=== PATIENT | female | born 1955 | race Caucasian/White ===

== ENCOUNTER → 2019-07-06 10:02 | Outpatient (CLI) | payer OTHER, SELFPAY | PROVIDERS: Visit Provider Nurse Practitioner | DX: R30.0 Dysuria (principal) | CPT/HCPCS: 87077; 87086; 87186 ==

== ENCOUNTER → 2019-11-17 10:45 | Outpatient (CLI) | payer OTHER, SELFPAY ==
--- NOTE | 2019-11-17 | DI.MG.S_ITS ---
BILATERAL DIGITAL SCREENING MAMMOGRAM 3D/2D WITH CAD: 11/17/2019 CLINICAL: Routine screening. Family history of breast cancer. Comparison is made to exams dated: 08/23/2016 mammogram, 08/19/2017 mammogram, and 09/29/2018 [facility]. There are scattered fibroglandular elements in both breasts. Current study was also evaluated with a Computer Aided Detection (CAD) system. There is a biopsy clip in the left breast. No significant masses, calcifications, or other findings are seen in either breast. There has been no significant interval change. IMPRESSION: NEGATIVE There is no mammographic evidence of malignancy. A 1 year screening mammogram is recommended. This exam was interpreted at Station ID: [id number]. NOTE: For mammograms, a report in lay terms will be sent to the patient. Approximately 15% of breast malignancies will not be visualized mammographically. In the management of a palpable breast mass, a negative mammogram must not discourage biopsy of a clinically suspicious lesion. Electronically Signed By: Andra alejo/ann:11/17/2019 13:07:31 letter sent: Normal Exam ACR BI-RADS Category 1: Negative 3341F
== END ==
PROVIDERS: PCP Family Medicine; Referring Provider Family Medicine; Visit Provider Family Medicine
DX: Z12.31 Encounter for screening mammogram for malignant neoplasm of breast (principal); Z80.3 Family history of malignant neoplasm of breast
CPT/HCPCS: 77063; 77067

== ENCOUNTER → 2020-11-27 10:52 | Outpatient (CLI) | payer OTHER, SELFPAY ==
--- NOTE | 2020-11-27 | DI.MG.S_ITS ---
BILATERAL DIGITAL SCREENING MAMMOGRAM 3D/2D WITH CAD: 11/27/2020 CLINICAL: Routine screening. Family history of breast cancer. Comparison is made to exams dated: 11/17/2019 mammogram - [facility], 09/29/2018 mammogram, and 08/19/2017 mammogram - [facility]. There are scattered fibroglandular elements in both breasts. Current study was also evaluated with a Computer Aided Detection (CAD) system. There is a biopsy clip in the left breast. No significant masses, calcifications, or other findings are seen in either breast. There has been no significant interval change. IMPRESSION: NEGATIVE There is no mammographic evidence of malignancy. A 1 year screening mammogram is recommended. This exam was interpreted at Station ID: [id number]. NOTE: For mammograms, a report in lay terms will be sent to the patient. Approximately 15% of breast malignancies will not be visualized mammographically. In the management of a palpable breast mass, a negative mammogram must not discourage biopsy of a clinically suspicious lesion. Electronically Signed By: Caesar carranza/ann:11/27/2020 13:49:17 letter sent: Normal Exam ACR BI-RADS Category 1: Negative 3341F
== END ==
PROVIDERS: PCP Family Medicine; Referring Provider Orthopaedic Surgery; Visit Provider Family Medicine
DX: Z12.31 Encounter for screening mammogram for malignant neoplasm of breast (principal); Z80.3 Family history of malignant neoplasm of breast
CPT/HCPCS: 77063; 77067

== ENCOUNTER → 2021-12-06 14:48 | Outpatient (CLI) | payer MEDICARE, OTHER, SELFPAY ==
--- NOTE | 2021-12-06 14:54 | DI.MG.S_ITS ---
BILATERAL DIGITAL SCREENING MAMMOGRAM 3D/2D WITH CAD: 12/06/2021 CLINICAL: Routine screening. Family history of breast cancer. Comparison is made to exams dated: 11/27/2020 mammogram, 11/17/2019 mammogram - [facility], and 09/29/2018 mammogram - [facility]. There are scattered fibroglandular elements in both breasts. Current study was also evaluated with a Computer Aided Detection (CAD) system. There is a biopsy clip in the left breast. No significant masses, calcifications, or other findings are seen in either breast. There has been no significant interval change. IMPRESSION: NEGATIVE There is no mammographic evidence of malignancy. A 1 year screening mammogram is recommended. This exam was interpreted at Station ID: [id number]. NOTE: For mammograms, a report in lay terms will be sent to the patient. Approximately 15% of breast malignancies will not be visualized mammographically. In the management of a palpable breast mass, a negative mammogram must not discourage biopsy of a clinically suspicious lesion. Electronically Signed By: Caesar carranza/ann:12/06/2021 16:25:40 letter sent: Normal Exam ACR BI-RADS Category 1: Negative 3341F
== END ==
PROVIDERS: PCP Family Medicine; Referring Provider Family Medicine; Visit Provider Family Medicine
DX: Z12.31 Encounter for screening mammogram for malignant neoplasm of breast (principal); Z80.3 Family history of malignant neoplasm of breast
CPT/HCPCS: 77063; 77067

== ENCOUNTER → 2022-08-13 09:25 | Outpatient (CLI) | payer MEDICARE, OTHER, SELFPAY ==
--- NOTE | 2022-08-22 09:56 | DIAB.MNT ---
Initial Diabetes Medical Nutrition Therapy Assessment Name: Leah Houston Date: 08/13/22 Time: [id number] Dx: Type II Diabetes Provider: Bry Leah presents today for initial DM visit with new diagnosis. Reports recent hgA1c of 5.8%, down from 6.5%. States she would like to learn as much as possible to keep BG in a therapeutic place. Continues on metformin 500mg BID. Has been staying active, and she has lost a reported 19# over four months intentionally. Leah would like to know what a healthy weight is for her and more about heart health. Also has questions regarding plant proteins and CHO content. Curious about egg nutrition. She has been tracking food with greg (130g CHO, 1500kcals) and is feeling satisfied. Saw nephrology for CKD. reports kidney issues r/t HTN (improved) and Advil use with h/o low back pain. Diet Recall: 7a: oatmeal, soy milk, berries (47g CHO) 1130a: tortilla with turkey avocado, lettuce and cheese (20g CHO) 3p: nuts or cheese or one tangerine (0-10g CHO) 630p: 6oz chx, acorn squash and salad (20-30g CHO) Beverages: 32-40oz water, 1c tea, 5c coffee, soymik, 1-2 ETOH servings per week Anthropometrics: Ht: 64 Wt: 172# Physical Activity: 30-60 mins walking per day outside, treadmill, or bike Self-Monitoring Blood Glucose: None Diabetes Medications: 500mg Metformin BID Pertinent Labs: 03/21/22 per referral: HgA1c 6.5% H eGFR: 46 L creatinine 1.29 h 10/29/21 Cholesterol 202 H T H HDL: 56 LDL: 114 H Past Medical History: OA, Disc degeneration, insomnia, HTN, back pain, Hypercholesterolemia, h/o colon polyps, h/o nicotine dependence, CKD3, DM2 Nutrition Rx: Carbohydrates: Meal:30-45g Snack:15-30g 1500kcals 80-95g PRO 50-60g Fat 1.5-2L fluids Nutrition Diagnosis: - Predicted inadequate fluids intake r/t limited water consumption aeb diet recall - Inconsistent pro intake r/t nutrition knowledge deficit aeb pt report and diet recall Intervention: This participant was very receptive. Provided appropriate educational handouts. Discussed the following topics: Completed intake assessment. Discussed barriers to care. Pathophysiology of T2DM HgA1c, its correlation to blood glucose numbers, and rationale for goal Plate Method, impact of macronutrients on blood sugar, meal timing, carbohydrate counting, pairing macronutrients and spreading out carbohydrates for better blood glucose management Recommended servings for carbohydrates at meals and snacks Heart health nutrition Brainstormed appropriate meal plan based on food preferences Role of physical activity and following provider guidelines for safety Egg nutrition Fluids recs for Dm and CKD PRO recs for CKD3 Healthy weight goals Created SMART goals for patient self-care and success. Goals: Add pro to breakfast- new Keep track of water- new Add eggs back into diet in moderation- new Follow-up: AVERY ROBERT follow-up for DSME classes in September and 1:1 thereafter. Oneyda Saleem RDN, [facility] Certified Diabetes Care and Spa Director/Finance P: [phone] Thank you for this referral
== END ==
PROVIDERS: PCP Family Medicine; Referring Provider Family Medicine; Visit Provider Family Medicine
DX: E11.9 Type 2 diabetes mellitus without complications (principal); Z71.3 Dietary counseling and surveillance; Z79.84 Long term (current) use of oral hypoglycemic drugs
CPT/HCPCS: 97802

== ENCOUNTER → 2022-09-03 09:21 | Outpatient (CLI) | payer MEDICARE, OTHER, SELFPAY ==
--- NOTE | 2022-09-05 13:54 | DIAB.FU ---
Diabetes Education Class Series: Diabetes and Nutrition Name: Leah Houston Date: 09/03/21 Time: 930a-12p Dx: Type II Diabetes Leah presents for class 1 of 3 for diabetes education. States she has been working on walking 60 min per day despite weather challenges. Also working on changes to her diet. Class topics covered: ? Debunk nutrition myths and discuss how to sustain healthy eating long-term through moderation and variety ? Define macronutrients and determine their impact on blood sugars ? Discuss macronutrient pairing, Plate Method, and carb counting ? Review general recommendations for carbohydrates ? Practice label reading ? Discuss the role of fiber in diabetes and provide examples of sources ? Review heart health nutrition: fats, fiber, and sodium ? Determine recommendations for grocery shopping and eating out ? Discuss alcohol recommendations ? Review the role of substitute sugars in diabetes management ? Set SMART goals Goal Set: Back exercises q other day fro 20-30 mins Follow-up: Diabetes Physiology and Medication Class in one week Oneyda Saleem RDN, [facility] Certified Diabetes Care and Private Equity Associate P: [phone] Thank you for this referral
== END ==
PROVIDERS: PCP Family Medicine; Referring Provider Family Medicine; Visit Provider Family Medicine
DX: E11.9 Type 2 diabetes mellitus without complications (principal); Z71.3 Dietary counseling and surveillance
CPT/HCPCS: G0109

== ENCOUNTER → 2022-09-10 09:24 | Outpatient (CLI) | payer MEDICARE, OTHER, SELFPAY ==
--- NOTE | 2022-09-12 11:19 | DIAB.FU ---
Diabetes Education Class Series: Diabetes Physiology and Medications Name: Leah Houston Date: 09/10/22 Time: [id number] Leah presents for class 2 of 3 today. Reports continued walking and incorporated back exercises, though is finding them to be more difficult than when she was doing these exercises previously. Plans to continue exercises but for 10-15 min. Class topics covered: ? Diabetes pathophysiology ? Discuss different types of diabetes ? Review criteria for diagnosing diabetes ? Review HgA1c measurement and associated blood sugars ? Review blood sugar monitoring safety, technique, and goals ? Discuss ways to reduce complications associated with diabetes, includes microvascular and macrovascular complications ? Review diabetes medications types, action, and side effects ? Health care visits recommended for people with T2DM ? Immunization recommended for people with T2DM ? SMART goals review Goal Set: back exercises q other day 10-15 mins Follow-up: Diabetes Lifestyle and Ongoing Support Class next week Oneyda Saleem RDN, [facility] Registered Dietitian, Certified Diabetes Care and Die Attaching Machine Tender [phone] [email or web address]
== END ==
PROVIDERS: PCP Family Medicine; Visit Provider Family Medicine
DX: E11.9 Type 2 diabetes mellitus without complications (principal); Z71.3 Dietary counseling and surveillance
CPT/HCPCS: G0109

== ENCOUNTER → 2022-09-17 09:25 | Outpatient (CLI) | payer MEDICARE, OTHER, SELFPAY ==
--- NOTE | 2022-09-26 15:54 | DIAB.FU ---
Diabetes Education Class Series: Diabetes Lifestyle Change and Ongoing Support Name: Leah Houston Date: 09/17/22 Time: [id number] Leah presents for class 3/3 DSME. participated well. States diet and exercise continue to be going well. Finding her back exercises to be more of a challenge than they were in the past, but working on them regardless. Plans to discuss with spouse how he can cont to support her lifestyle changes. Class topics covered: ? Discuss the difference between physical activity and exercise ? Determine physical activity benefits and impact on diabetes ? Review physical activity recommendations and safety ? Discuss emergency preparedness ? Discuss diabetes and emotions (diabetes burnout/distress) ? Review and practice stress management techniques ? Review support groups and community resources ? Discuss the role of family support in diabetes care ? What is going well? Challenges of diabetes? ? Set SMART goals Follow-up: 1:1 visit follow-up 10/01/22 Oneyda Saleem RDN, [facility] Registered Dietitian, Certified Diabetes Care and Senior Analysis Specialist [phone] [email or web address]
== END ==
PROVIDERS: PCP Family Medicine; Referring Provider Family Medicine; Visit Provider Family Medicine
DX: E11.9 Type 2 diabetes mellitus without complications (principal); Z71.3 Dietary counseling and surveillance
CPT/HCPCS: G0109

== ENCOUNTER → 2022-10-01 12:41 | Outpatient (CLI) | payer MEDICARE, OTHER, SELFPAY ==
--- NOTE | 2022-10-01 14:45 | DIAB.MNTFU ---
Follow-up Diabetes Medical Nutrition Therapy Assessment Name: Leah Houston Date: 10/01/22 Time: 105-145p Dx: Type II Diabetes Leah presents for diabetes follow-up after completion of DSME classes. Reports overall things are going well. States she has been conscious of carb intake, continues omitting ETOH, and tracking food intake in her greg. Would like to have more recipe resources geared toward diabetes. Reports has been more supportive in his actions in terms of diet/diabetes management. Fluid intake seems to have improved. Has added protein to breakfast as discussed. Aims for more plat forward diet, including plant proteins. Has added eggs back in moderation. States her biggest concern right now is stress management. Family member with cancer has poor prognosis. Being outside, talking with friends, and potentially getting a new dog may help with stress per report. Plans to see file drawer finisher and PCP in October for f/u. Anthropometrics: Ht: 64 Wt: 165# reported (down from 173# our first visit; endorses about 1# weight loss per week with lifestyle changes). Physical Activity: Walking daily for 60 mins. Incorporating gardening or back exercises most days. Self-Monitoring Blood Glucose: None. Diabetes Medications: 500mg Metformin BID Pertinent Labs: 03/21/22 per referral: HgA1c 6.5% H eGFR: 46 L creatinine 1.29 h 10/29/21 Cholesterol 202 H T H HDL: 56 LDL: 114 H Past Medical History: OA, Disc degeneration, insomnia, HTN, back pain, Hypercholesterolemia, h/o colon polyps, h/o nicotine dependence, CKD3, DM2 Nutrition Rx: Carbohydrates: Meal:30-45g Snack:15-30g 1500kcals 80-95g PRO 50-60g Fat 1.5-2L fluids Nutrition Diagnosis: - Predicted inadequate fluids intake r/t limited water consumption aeb diet recall- improved - Inconsistent pro intake r/t nutrition knowledge deficit aeb pt report and diet recall- improved - Food and nutrition related knowledge deficit r/t needing more resources for cookbooks aeb pt report - new Intervention: This participant was very receptive. Provided appropriate educational handouts. Discussed the following topics: Cookbooks, websites, and diabetes magazine resources Stress management and impact on BG Healthy weight loss plan Physical activity plan and progress Created SMART goals for patient self-care and success. Goals: Add pro to breakfast- met Keep track of water- met Add eggs back into diet in moderation- met Check out diabetes recipe resources- new Follow-up: AVERY ROBERT follow-up in 6 months for check-in. Leah seems to be managing her diabetes well with lifestyle changes. States she sometimes falls off her diet goals and would like to check-in over the summer. Encouraged her to call or message with questions or sooner f/u needs prn. Oneyda Saleem RDN, [facility] Certified Diabetes Care and Director Of Neurology P: [phone] Thank you for this referral
== END ==
PROVIDERS: PCP Family Medicine; Referring Provider Family Medicine; Visit Provider Family Medicine
DX: E11.9 Type 2 diabetes mellitus without complications (principal); Z79.84 Long term (current) use of oral hypoglycemic drugs; Z71.3 Dietary counseling and surveillance
CPT/HCPCS: 97803

== ENCOUNTER → 2022-12-09 14:15 | Outpatient (CLI) | payer MEDICARE, OTHER, SELFPAY ==
--- NOTE | 2022-12-09 | DI.MG.S_ITS ---
BILATERAL DIGITAL SCREENING MAMMOGRAM 3D/2D WITH CAD: 12/09/2022 CLINICAL: Routine screening. Family history of breast cancer. Comparison is made to exams dated: 12/06/2021 mammogram, 11/27/2020 mammogram, and 11/17/2019 mammogram - [facility]. There are scattered areas of fibroglandular density in both breasts (category b / 25%-50% glandular tissue). Current study was also evaluated with a Computer Aided Detection (CAD) system. There is a possible developing irregular equal density asymmetry with an indistinct margin in the right breast at 11 o'clock middle depth. This is increased in size. No other significant masses, calcifications, or other findings are seen in either breast. IMPRESSION: INCOMPLETE: NEEDS ADDITIONAL IMAGING EVALUATION The possible developing irregular equal density asymmetry in the right breast is indeterminate. Additional views with possible ultrasound are recommended. Based on the Tyrer Cuzick model (a risk assessment model) the patient's lifetime risk is 8.8% and her 10 year risk is 4.5%. According to the ACR, ACS, and NCCN guidelines, an annual breast MRI exam along with mammogram is recommended if the patient's lifetime risk is 20% or greater. This exam was interpreted at Station ID: [id number]. NOTE: For mammograms, a report in lay terms will be sent to the patient. Approximately 15% of breast malignancies will not be visualized mammographically. In the management of a palpable breast mass, a negative mammogram must not discourage biopsy of a clinically suspicious lesion. Electronically Signed By: Andra alejo/ann:12/09/2022 15:30:30 letter sent: Additional Imaging Needed ACR BI-RADS Category 0: Incomplete 3340F
== END ==
PROVIDERS: PCP Family Medicine; Referring Provider Family Medicine; Visit Provider Family Medicine
DX: Z12.31 Encounter for screening mammogram for malignant neoplasm of breast (principal); Z80.3 Family history of malignant neoplasm of breast
CPT/HCPCS: 77063; 77067

== ENCOUNTER → 2022-12-25 10:14 | Outpatient (CLI) | payer MEDICARE, OTHER, SELFPAY ==
--- NOTE | 2022-12-25 | DI.MG.S_ITS ---
UNILATERAL RIGHT DIGITAL DIAGNOSTIC MAMMOGRAM 3D/2D WITH ADDITIONAL VIEWS: 12/25/2022 CLINICAL: Additional evaluation requested from prior study. Comparison is made to exams dated: 12/09/2022 mammogram, 12/06/2021 mammogram, and 11/27/2020 mammogram - [facility]. There are scattered areas of fibroglandular density in the right breast (category b / 25%-50% glandular tissue). The possible developing irregular equal density asymmetry with an indistinct margin in the right breast at 11 o'clock middle depth is not reproduced and presumably represented superimposed breast tissue. This is not confirmed with additional views. No other significant masses or calcifications are seen in the breast. IMPRESSION: INCOMPLETE: NEEDS ADDITIONAL IMAGING EVALUATION No persistent abnormality in the right breast with additional views. An ultrasound is recommended to confirm resolution of the asymmetry in the right breast middle depth. This was performed immediately following this exam. Based on the Tyrer Cuzick model (a risk assessment model) the patient's lifetime risk is 8.8% and her 10 year risk is 4.5%. According to the ACR, ACS, and NCCN guidelines, an annual breast MRI exam along with mammogram is recommended if the patient's lifetime risk is 20% or greater. This exam was interpreted at Station ID: [id number]. NOTE: For mammograms, a report in lay terms will be sent to the patient. Approximately 15% of breast malignancies will not be visualized mammographically. In the management of a palpable breast mass, a negative mammogram must not discourage biopsy of a clinically suspicious lesion. Electronically Signed By: Andra alejo/:12/25/2022 12:04:02 ACR BI-RADS Category 0: Incomplete 3340F
--- NOTE | 2022-12-25 | DI.US.S_ITS ---
LIMITED ULTRASOUND OF RIGHT BREAST: 12/25/2022 CLINICAL: Patient returns today to evaluate a focal asymmetry in the right breast. Comparison is made to exams dated: 12/25/2022 mammogram, 12/06/2021 mammogram, 12/09/2022 mammogram, 11/27/2020 mammogram, 11/17/2019 mammogram - [facility], and 09/29/2018 mammogram - [facility]. Ultrasound of the right breast upper outer quadrant was performed. Bosch scale images of the real-time examination were reviewed. No significant abnormalities were seen sonographically in the right breast. Specifically, no finding to correspond to the patient's resolved screening mammographic abnormality. IMPRESSION: NEGATIVE There is no sonographic correlate to the patient's resolved screening mammogram abnormality and no evidence of malignancy. Return to annual mammogram screening schedule is recommended. Findings and recommendations were conveyed to the patient at time of exam. This exam was interpreted at Station ID: [id number]. Electronically Signed By: Andra alejo/:12/25/2022 12:05:21 letter sent: Normal Exam Ultrasound BI-RADS: 1 Negative
== END ==
PROVIDERS: PCP Family Medicine; Referring Provider Family Medicine; Visit Provider Family Medicine
DX: R92.2 Inconclusive mammogram (principal)
CPT/HCPCS: 76642; 77065; G0279

== ENCOUNTER → 2023-12-29 11:49 | Outpatient (CLI) | payer MEDICARE, OTHER, SELFPAY ==
--- NOTE | 2023-12-29 | DI.MG.S_ITS ---
BILATERAL DIGITAL SCREENING MAMMOGRAM 3D/2D WITH CAD: 12/29/2023 CLINICAL: Routine screening. Family history of breast cancer. Comparison is made to exams dated: 12/09/2022 mammogram, 12/06/2021 mammogram, and 11/27/2020 mammogram - [facility]. There are scattered areas of fibroglandular density in both breasts (category b / 25%-50% glandular tissue). Current study was also evaluated with a Computer Aided Detection (CAD) system. No significant masses, calcifications, or other findings are seen in either breast. There has been no significant interval change. IMPRESSION: NEGATIVE There is no mammographic evidence of malignancy. A 1 year screening mammogram is recommended. Based on the Tyrer Cuzick model (a risk assessment model) the patient's lifetime risk is 8.4% and her 10 year risk is 4.4%. According to the ACR, ACS, and NCCN guidelines, an annual breast MRI exam along with mammogram is recommended if the patient's lifetime risk is 20% or greater. This exam was interpreted at Station ID: [id number]. NOTE: For mammograms, a report in lay terms will be sent to the patient. Approximately 15% of breast malignancies will not be visualized mammographically. In the management of a palpable breast mass, a negative mammogram must not discourage biopsy of a clinically suspicious lesion. Electronically Signed By: Caesar carranza/ann:12/29/2023 12:50:33 letter sent: Normal Exam ACR BI-RADS Category 1: Negative 3341F
== END ==
PROVIDERS: PCP Family Medicine; Referring Provider Family Medicine; Visit Provider Family Medicine
DX: Z12.31 Encounter for screening mammogram for malignant neoplasm of breast (principal); Z80.3 Family history of malignant neoplasm of breast; R92.323 Mammographic fibroglandular density, bilateral breasts
CPT/HCPCS: 77063; 77067

== ENCOUNTER → 2024-04-02 06:57 | Outpatient (CLI) | payer MEDICARE, OTHER, SELFPAY ==
[2024-04-02 08:03] LABS: Add Manual Diff / Slide Review NO; Basophils Absolute Auto 100 /uL (0-100); Basophils Percent Auto 0.9 % (0-2); Eosinophils Absolute Auto 200 /uL (0-450); Eosinophils Percent Auto 3.1 % (2-4); Hematocrit 36.4 % (36-46); Hemoglobin 12.4 g/dL (12.0-16.0); Lymphocytes Absolute Auto 1500 /uL (1100-4500); Lymphocytes Percent Auto 22.6 % (25-40); Mean Corpuscular HGB Conc 33.9 % (30-36); Mean Corpuscular Hemoglobin 32.5 PG (26-34); Mean Corpuscular Volume 95.8 fL (80-100); Monocytes Absolute Auto 500 /uL (0-900); Monocytes Percent Auto 6.9 % (3-14); Neutrophils Absolute Auto 4400 /uL (1500-7000); Neutrophils Percent Auto 66.5 % (50-75); Platelet Count 253 X10^3/uL (150-400); Red Cell Distribution Width 12.7 % (11.6-14.8); White Blood Cell Count 6.7 X10^3/uL (4.5-11.0)
[2024-04-02 08:26] LABS: Alanine Aminotransferase 27 IU/L (<35); Albumin 4.3 g/dL (3.5-5.0); Albumin Globulin Ratio 1.5 (1.0-2.8); Alkaline Phosphatase 68 U/L (38-126); Aspartate Aminotransferase 34 IU/L (14-36); Bilirubin Total 0.5 mg/dL (0.2-1.3); Blood Urea Nitrogen 32 mg/dL (7-17); Carbon Dioxide 28 mmol/L (22-32); Chloride 102 mmol/L (98-107); Cholesterol 198 mg/dL (140-199); Estimated Glomerular Filt Rate 46 mL/min (>60); Globulin 2.8 g/dL (1.7-4.1); Glucose 98 mg/dL (80-110); HDL Cholesterol 61 mg/dL (40-60); HEMOLYSIS < 15 (0-50); LDL Cholesterol Calculated 97 mg/dL (<100); Potassium 4.5 mmol/L (3.4-5.1); Sodium 135 mmol/L (137-145); Total Protein 7.1 g/dL (6.3-8.2); Triglycerides 200 mg/dL (35-150)
== END ==
PROVIDERS: PCP Family Medicine; Referring Provider Family Medicine; Visit Provider Family Medicine
DX: Z00.00 Encounter for general adult medical examination without abnormal findings (principal); E11.9 Type 2 diabetes mellitus without complications; I10 Essential (primary) hypertension; G89.29 Other chronic pain; R51.9 Headache, unspecified
CPT/HCPCS: 36415; 80053; 80061; 83036; 85025

== ENCOUNTER → 2024-05-12 11:35 | Outpatient (CLI) | payer MEDICARE, OTHER, SELFPAY ==
--- NOTE | 2024-05-12 11:36 | DI.RAD.S_ITS ---
PROCEDURE: XR DEXA AXIAL SKELETON INDICATIONS: asymptomatic age related postmenopausal state COMPARISON: None. FINDINGS: Left Hip: Bone mineral density 0.745 g/cm2, T score -1.6. Left Femoral Neck: Bone mineral density 0.576 g/cm2, T score -2.5. Right Hip: Bone mineral density 0.73 g/cm2, T score -1.7. Right Femoral Neck: Bone mineral density 0.622 g/cm2, T score -2.0. Left Forearm: Bone mineral density 0.590 g/cm2, T score -1.7. Fracture Risk Calculation (when applicable): 10-year fracture risk of a major osteoporotic fracture 11% and of a hip fracture 1.9% without fracture and 18% and 3.0% with prior fracture. (T score greater or equal to -1.0 to: NORMAL) (T score from -1.1 to -2.4: OSTEOPENIA) (T score less than or equal to -2.5: OSTEOPOROSIS) IMPRESSION: Osteoporosis is present in the left femoral neck with [id number] osteopenia within the left hip as well as right hip/femoral neck and forearm. Follow-up guidelines as follows: Osteoporosis: Consider a repeat DEXA and Vertebral Fracture Assessment (VFA) exam in 2 years or sooner if medically necessary, to reassess this patient's status. Osteopenia: Consider a repeat DEXA in 2-3 years to reassess this patient's status, or if there is a new clinical indication. Normal: Consider a repeat DEXA in 5 years or sooner, or if there is a new clinical indication. All treatment decisions require clinical judgment and consideration of individual patient factors, including patient preferences, comorbidities, previous drug use, risk factors not captured in the FRAX model (e.g., frailty, falls, vitamin D deficiency, increased bone turnover, interval significant decline in bone density ) and possible under- or over-estimation of fracture risk by FRAX. In addition, the NOF Guide recommends that FDA-approved medical therapies be considered in postmenopausal women and men age >= 50 years with a: * Hip or vertebral (clinical or morphometric) fracture * T-score of <=-2.5 at the spine or hip * Ten-year fracture probability by FRAX of >= 3% for hip fracture or >=20% for major osteoporotic fracture. People with diagnosed cases of osteoporosis or at high risk for fracture should have regular bone mineral density tests. For patients eligible for Medicare, routine testing is allowed once every 2 years. The testing frequency can be increased to one year for patients who have rapidly progressing disease, those who are receiving or discontinuing medical therapy to restore bone mass, or have additional risk factors. Dictated by: Rajani Gutierrez M.D. on 05/12/2024 at 14:04 Approved by: Rajani Gutierrez M.D. on 05/12/2024 at 14:05
== END ==
PROVIDERS: PCP Family Medicine; Referring Provider Family Medicine; Visit Provider Family Medicine
DX: M81.0 Age-related osteoporosis without current pathological fracture (principal); Z78.0 Asymptomatic menopausal state
CPT/HCPCS: 77080; 77081

== ENCOUNTER → 2024-06-10 07:11 | Outpatient (CLI) | payer MEDICARE, OTHER, SELFPAY ==
[2024-06-10 08:33] LABS: Add Manual Diff / Slide Review NO; Basophils Absolute Auto 100 /uL (0-100); Basophils Percent Auto 0.8 % (0-2); Eosinophils Absolute Auto 200 /uL (0-450); Eosinophils Percent Auto 3.7 % (2-4); Hematocrit 35.2 % (36-46); Hemoglobin 11.9 g/dL (12.0-16.0); Lymphocytes Absolute Auto 1400 /uL (1100-4500); Lymphocytes Percent Auto 23.9 % (25-40); Mean Corpuscular HGB Conc 33.8 % (30-36); Mean Corpuscular Volume 94.6 fL (80-100); Monocytes Absolute Auto 500 /uL (0-900); Monocytes Percent Auto 8.2 % (3-14); Neutrophils Absolute Auto 3800 /uL (1500-7000); Neutrophils Percent Auto 63.4 % (50-75); Platelet Count 244 X10^3/uL (150-400); Red Blood Cell Count 3.72 X10^6/uL (4.0-5.2); Red Cell Distribution Width 12.5 % (11.6-14.8)
[2024-06-10 08:46] LABS: Hemoglobin A1C% w Est Avg Glu 5.9 % (4.0-6.0)
[2024-06-10 08:50] LABS: Alanine Aminotransferase 20 IU/L (<35); Albumin 3.9 g/dL (3.5-5.0); Albumin Globulin Ratio 1.4 (1.0-2.8); Alkaline Phosphatase 63 U/L (38-126); Aspartate Aminotransferase 29 IU/L (14-36); BUN Creatinine Ratio 26.6 (6-22); Bilirubin Total 0.4 mg/dL (0.2-1.3); Blood Urea Nitrogen 33 mg/dL (7-17); Calcium 10.1 mg/dL (8.4-10.2); Carbon Dioxide 29 mmol/L (22-32); Chloride 101 mmol/L (98-107); Estimated Glomerular Filt Rate 47 mL/min (>60); Globulin 2.7 g/dL (1.7-4.1); Glucose 99 mg/dL (80-110); HEMOLYSIS < 15 (0-50); Phosphorous 3.5 mg/dL (2.8-4.1); Potassium 4.3 mmol/L (3.4-5.1); Sodium 134 mmol/L (137-145); Total Protein 6.6 g/dL (6.3-8.2)
[2024-06-10 09:07] LABS: Vitamin D 25 Hydroxy (D3) 54.9 ng/mL (30.0-100.0)
== END ==
PROVIDERS: PCP Family Medicine; Referring Provider Family Medicine; Visit Provider Family Medicine
DX: N18.30 Chronic kidney disease, stage 3 unspecified (principal); E11.9 Type 2 diabetes mellitus without complications; I10 Essential (primary) hypertension; M81.0 Age-related osteoporosis without current pathological fracture
CPT/HCPCS: 36415; 80053; 82306; 83036; 84100; 85025

== ENCOUNTER → 2024-08-20 07:00 | Outpatient (CLI) | payer MEDICARE, OTHER, SELFPAY ==
[2024-08-20 08:09] LABS: Add Manual Diff / Slide Review NO; Basophils Absolute Auto 0 /uL (0-100); Basophils Percent Auto 0.6 % (0-2); Eosinophils Absolute Auto 200 /uL (0-450); Eosinophils Percent Auto 2.5 % (2-4); Hematocrit 35.9 % (36-46); Lymphocytes Absolute Auto 1500 /uL (1100-4500); Lymphocytes Percent Auto 22.9 % (25-40); Mean Corpuscular HGB Conc 33.5 % (30-36); Mean Corpuscular Hemoglobin 31.9 PG (26-34); Mean Corpuscular Volume 95.5 fL (80-100); Monocytes Absolute Auto 500 /uL (0-900); Monocytes Percent Auto 7.2 % (3-14); Neutrophils Absolute Auto 4300 /uL (1500-7000); Neutrophils Percent Auto 66.8 % (50-75); Platelet Count 258 X10^3/uL (150-400); Red Blood Cell Count 3.77 X10^6/uL (4.0-5.2); Red Cell Distribution Width 13.2 % (11.6-14.8); White Blood Cell Count 6.4 X10^3/uL (4.5-11.0)
[2024-08-20 08:27] LABS: HEMOLYSIS < 15 (0-50); Iron 98 ug/dL (37-170)
[2024-08-20 08:31] LABS: Alanine Aminotransferase 24 IU/L (<35); Albumin 4.3 g/dL (3.5-5.0); Albumin Globulin Ratio 1.7 (1.0-2.8); Alkaline Phosphatase 70 U/L (38-126); Aspartate Aminotransferase 31 IU/L (14-36); BUN Creatinine Ratio 21.9 (6-22); Bilirubin Total 0.5 mg/dL (0.2-1.3); Blood Urea Nitrogen 35 mg/dL (7-17); Calcium 10.3 mg/dL (8.4-10.2); Carbon Dioxide 27 mmol/L (22-32); Chloride 103 mmol/L (98-107); Creatine Kinase 262 U/L (30-135); Estimated Glomerular Filt Rate 35 mL/min (>60); Globulin 2.5 g/dL (1.7-4.1); Glucose 108 mg/dL (80-110); HEMOLYSIS < 15 (0-50); Magnesium 2.1 mg/dL (1.6-2.3); Potassium 4.4 mmol/L (3.4-5.1); Sodium 137 mmol/L (137-145); Total Protein 6.8 g/dL (6.3-8.2)
[2024-08-20 08:38] LABS: Percent Iron Saturation 32 % (15-50); Total Iron Binding Capacity 302 ug/dL (265-497); Transferrin 298 mg/dL (206-381)
--- NOTE | 2024-08-20 08:38 | DI.RAD.S_ITS ---
PROCEDURE: XR PELVIS 1-2V INDICATIONS: persistent groin pain, radiating down legs TECHNIQUE: 1 view(s) of the pelvis acquired. COMPARISON: None. FINDINGS: Bones: No fractures or dislocations. No suspicious bony lesions. Lower lumbar fusion. Moderate degenerative hip joint space narrowing. Soft tissues: Visualized bowel gas pattern is normal. No suspicious soft tissue calcifications. IMPRESSION: Moderate bilateral hip arthritic change. Dictated by: Rajnai Gutierrez M.D. on 08/20/2024 at 15:18 Approved by: Rajani Gutierrez M.D. on 08/20/2024 at 15:18
== END ==
PROVIDERS: PCP Family Medicine; Referring Provider Family Medicine; Visit Provider Family Medicine
DX: R25.2 Cramp and spasm (principal); S76.219A Strain of adductor muscle, fascia and tendon of unspecified thigh, initial encounter; M79.604 Pain in right leg; M79.605 Pain in left leg; N18.30 Chronic kidney disease, stage 3 unspecified; E11.9 Type 2 diabetes mellitus without complications; M79.18 Myalgia, other site; M51.9 Unspecified thoracic, thoracolumbar and lumbosacral intervertebral disc disorder; X58.XXXA Exposure to other specified factors, initial encounter
CPT/HCPCS: 36415; 72170; 80053; 82550; 83540; 83550; 83735; 85025

== ENCOUNTER 2024-08-24 09:02 | Emergency (ER) | payer MEDICARE, OTHER, SELFPAY ==
[2024-08-24 09:04] VITALS: BP 159/72; PULSE 67; RESP 15; TEMP 37.1; O2SAT 98; BMI 31.7
--- NOTE | 2024-08-24 09:38 | ED_ITS ---
HPI - Recheck/Abnormal Lab/Rx General Chief Complaint: Recheck/Abnormal Lab/Rx Stated Complaint: sent by PCP for abn labs Time Seen by Provider: 08/24/24 09:38 Source: patient Mode of arrival: Ambulatory History of Present Illness HPI narrative: 69-year-old female here for follow up of reported abnormal laboratory values, told that her blood draw on Friday showed abnormal kidney function, and also an increased blood calcium level. She has been having ongoing lower abdominal discomfort, left lower leg sciatica symptoms, more recently right leg pain problems. She went to her provider on Friday and had lab work done. Subsequently told her renal function and calcium levels or abnormal, here for further evaluation. She denies numbness or weakness to her legs, able to ambulate. Prior lumbar surgeries noted. No new activities, falls, injury, trauma. No fevers or chills. No frequency of urination or painful urination. Denies shortness of breath or chest pain. She has left breast area discomfort, awaiting outpatient ultrasound. Related Data Home Medications Medication Instructions Recorded Confirmed aspirin 81 mg tablet,delayed 81 mg PO DAILY 01/20/24 08/16/24 release gabapentin 300 mg capsule mg PO BID 01/20/24 08/16/24 hydrochlorothiazide 12.5 mg tablet 12.5 mg PO DAILY 01/20/24 08/16/24 losartan 50 mg tablet 50 mg PO DAILY 01/20/24 08/16/24 metformin 500 mg tablet 500 mg PO BID 01/20/24 08/16/24 rosuvastatin 10 mg tablet 10 mg PO ONCE PM 01/20/24 08/16/24 Previous Rx's Medication Instructions Recorded alendronate 70 mg tablet 70 mg PO QWEEK #8 tabs 05/24/24 methocarbamol 500 mg tablet 500 mg PO .BID PRN #10 tabs 08/16/24 Allergies Allergy/AdvReac Type Severity Reaction Status Date / Time No Known Drug Allergies Allergy Verified 08/24/24 09:14 Patient History Medical History (Updated 08/24/24 @ 12:26 by Marco Bauer MD) Lumbar disc disease (~2008) Mumps Measles Chicken pox History of kidney disease (~2021) Chronic headaches Carpal tunnel syndrome (~2022) Hearing loss (~2020) Diabetes mellitus type 2, controlled Hypertension UTI (urinary tract infection) Surgical History (Updated 03/01/24 @ 20:08 by Trish Bran) Anesthesia History of colonoscopy (~2023) History of tonsillectomy (~1963) History of partial hysterectomy (~1994) History of lumbar fusion Family History (Updated 03/01/24 @ 20:11 by Trish Bran) Father History of heart disease Hyperlipidemia Mother Cancer Brother Hyperlipidemia Grandfather Cancer Grandmother Cancer COPD (chronic obstructive pulmonary disease) Grandfather Ulcer Grandmother Parkinson's disease Social History Smoking Status: Former smoker Smoking Status: Former smoker Exam Narrative Exam Narrative: GENERAL: Well-developed patient, in mild distress. HEAD: Atraumatic. Normocephalic. EYES: Pupils equal round and reactive. Extraocular motions intact. No scleral icterus. No injection or drainage. ENT: Nose without bleeding, purulent drainage. Throat without erythema, tonsillar hypertrophy or exudate. Airway patent. NECK: Trachea midline. Non tender CARDIOVASCULAR: Regular rate and rhythm without murmurs, gallops, or rubs. RESPIRATORY: Clear to auscultation. Breath sounds equal bilaterally. No wheezes, rales, or rhonchi. GASTROINTESTINAL: Abdomen soft, non-tender, nondistended. EXTREMITIES: No edema or joint tenderness. BACK: Nontender without deformity or crepitance. No flank tenderness. NEURO: AOx3. Motor functions grossly nonfocal SKIN: No rash or erythema of visible areas Initial Vital Signs Initial Vital Signs: Vital Signs Temperature 98.7 F 08/24/24 09:04 Pulse Rate 67 08/24/24 09:04 Respiratory Rate 15 08/24/24 09:04 Blood Pressure 159/72 H 08/24/24 09:04 Pulse Oximetry 98 08/24/24 09:04 Oxygen Delivery Method Room Air 08/24/24 09:04 Course Orders Ordered: ED Orders 08/24/24 10:05 CT abdomen pelvis wo con Stat 08/24/24 10:23 CBC Auto Diff [Complete Blood Count AUTO DIFF] Stat CMP [Comprehensive Metabolic Panel] Stat Lipase Stat 08/24/24 10:55 Urinalysis and Microscopic Stat Urine Culture Stat Vital Signs Vital signs: Vital Signs - 8 hr 08/24/24 11:07 08/24/24 11:07 08/24/24 11:30 Pulse Rate 61 Blood Pressure 143/74 H 146/67 H Pulse Oximetry 98 Oxygen Delivery Method Room Air 08/24/24 11:30 08/24/24 11:35 08/24/24 12:00 Pulse Rate 56 L 57 L 61 Blood Pressure Pulse Oximetry 97 98 97 Oxygen Delivery Method Room Air 08/24/24 12:00 08/24/24 12:19 Pulse Rate 61 Blood Pressure 128/69 Pulse Oximetry 97 Oxygen Delivery Method Room Air MDM - Recheck/Abnormal Lab/Rx Lab Data Attestation: I reviewed the patient's lab results. Lab results narrative: White blood cell count 7900, hemoglobin 12.1, platelets adequate. BUN 33 with creatinine 1.32, not as bad as recent draw results on 08/20/2024. Calcium now normal was elevated on prior draw as well. Urinalysis negative. LFTs unremarkable. Copy of labs given to patient. 08/24/24 10:23 08/24/24 10:23 Labs: Lab Results 08/24/24 08/24/24 Range/Units 10:23 10:55 WBC 7.9 (4.5-11.0) X10^3/uL RBC 3.81 L (4.0-5.2) X10^6/uL Hgb 12.1 (12.0-16.0) g/dL Hct 36.2 (36-46) % MCV 95.2 (80-100) fL MCH 31.8 (26-34) PG MCHC 33.4 (30-36) % RDW 13.2 (11.6-14.8) % Plt Count 248 (150-400) X10^3/uL Neut % (Auto) 74.9 (50-75) % Lymph % (Auto) 16.2 L (25-40) % [place] % (Auto) 6.8 (3-14) % Eos % (Auto) 1.5 L (2-4) % Baso % (Auto) 0.6 (0-2) % Neut # (Auto) 5900 (7708-7094) /uL Lymph # (Auto) 1300 (3756-2537) /uL [place] # (Auto) 500 (0-900) /uL Eos # (Auto) 100 (0-450) /uL Baso # (Auto) 0 (0-100) /uL Sodium 133 L (137-145) mmol/L Potassium 4.2 (3.4-5.1) mmol/L Chloride 104 (98-107) mmol/L Carbon Dioxide 25 (22-32) mmol/L BUN 33 H (7-17) mg/dL Creatinine 1.32 H (0.52-1.04) mg/dL Estimated GFR 44 L (>60) mL/min BUN/Creatinine Ratio 25.0 H (6-22) Glucose 104 (80-110) mg/dL Calcium 9.9 (8.4-10.2) mg/dL Total Bilirubin 0.4 (0.2-1.3) mg/dL AST 32 (14-36) IU/L ALT 24 (<35) IU/L Alkaline Phosphatase 66 (38-126) U/L Total Protein 7.4 (6.3-8.2) g/dL Albumin 4.3 (3.5-5.0) g/dL Globulin 3.1 (1.7-4.1) g/dL Albumin/Globulin Ratio 1.4 (1.0-2.8) Lipase 71 (23-300) U/L Urine Color Yellow Urine Appearance Clear Urine pH 6.0 (4.5-8.0) Ur Specific [place] 1.010 (1.000-1.035) Urine Protein Negative (Negative) Urine Glucose (UA) Negative (Negative) g/dL Urine Ketones Negative (NEGATIVE) Urine Occult Blood Negative (Negative) Urine Nitrate Negative (Negative) Urine Bilirubin Negative (NEGATIVE) Urine Urobilinogen 0.2 (0.2) E.U./dL Ur Leukocyte Esterase 1+ H (NEGATIVE) Urine RBC 0-1/hpf (0-5/HPF) Urine WBC 1-5/hpf (0-5/HPF) Ur Squamous Epith Cells 0-1 /hpf (0-5/HPF) Urine Bacteria Occasional (0-1) (None) Ur Culture Indicated? Specimen cultured Vol Urine Centrifuged 10ml (spun) Imaging Data CT scan - abdomen/pelvis: Radiologist's Impression: [address] [address] [address] Scan Report Signed Patient: Leah Houston MR#: [id number] : 1955 Acct:[id number] Age/Sex: 69 / F Date of Service: 08/24/24 Loc: ED Accession Number: [id number] Procedure: CT abdomen pelvis wo con Ordering Provider: Marco Bauer MD PROCEDURE: CT ABDOMEN PELVIS WO CON INDICATIONS: abd pelvic pain TECHNIQUE: Axial sections were acquired from the lung bases to the pubic symphysis. Coronal and sagittal reformats were performed. For radiation dose reduction, the following was used: automated exposure control, adjustment of mA and/or kV according to patient size. COMPARISON: None. FINDINGS: Image quality: Diagnostic. Lower Chest: No significant findings. URINARY: Right Kidney: No stones or hydronephrosis. Right Ureter: No hydroureter. Left Kidney: No obstructing stones or hydronephrosis. 2 mm nonobstructing stone in lower pole left kidney. Simple appearing small left peripelvic renal cysts are seen. Left Ureter: No hydroureter. Bladder: Normal wall thickness. No stones. ABDOMEN: Liver: No contour-deforming solid mass. Gallbladder: No radiopaque gallstones or wall thickening. Biliary ducts: No biliary dilation. Pancreas: No ductal dilation. Spleen: Size is within normal limits. Adrenal Glands: No adrenal nodules. Stomach and Bowel: Normal colonic caliber, without significant wall thickening. Mild fecal stasis in the colon is seen. Appendix is visualized and is within normal limits. Sigmoid diverticulosis without CT evidence of acute diverticulitis. No abscess collection. Peritoneum: No abnormal intraperitoneal fluid. No free air. Ventral Wall: No hernia. Abdominal Nodes: No enlarged retroperitoneal or mesenteric lymph nodes. Vessels: Aorta and inferior vena cava are normal in size. PELVIS: Pelvic Organs: Unremarkable. Pelvic Nodes: Unremarkable. Miscellaneous: No inguinal hernias are seen. Bones: Post fusion changes are noted in lower lumbar spine at L3 through L5 levels. No acute vertebral body compression fracture. Degenerative disc disease throughout lower thoracic and lumbar spine is seen. IMPRESSION: 1. No obstructing stones or hydronephrosis. Nonobstructing stone in lower pole left kidney. Left peripelvic renal cysts. No hydroureter. Normal appearing urinary bladder. 2. Normal appendix. No bowel obstruction or abnormal bowel wall thickening. Mild constipation. Sigmoid diverticulosis without CT evidence of acute diverticulitis. Dictated by: Arthur Morejon M.D. on 08/24/2024 at 11:14 Approved by: Arthur Morejon M.D. on 08/24/2024 at 11:20 [facility] Narrative Medical decision making narrative: 69-year-old female with reported abnormal lab draw on Friday, told that her kidney function was abnormal, and calcium level in the blood elevated, here for repeat labs and evaluation. Also ongoing abdominal and back discomfort, history of lumbar surgeries, left-sided sciatica, now right lower extremity pain. She would like imaging. CT abdomen and pelvis noncontrast study ordered to evaluate the pelvic regions, which also will provide bone windows to lumbar spine, and look for any referred pain below the diaphragm, she seemed amenable to this plan, scan ordered. Keep NPO for now. We will order CBC, CMP, urinalysis, lipase. She declines pain medications when offered, we will avoid Toradol/NSAIDs for now. CMP shows normal calcium, BUN and creatinine results better than last draw 08/20/2024. No significant interval lab abnormality confirmed. CT abdomen and pelvis imaging showed no acute changes. See radiology report. No mentioned on scanning any bony window concerns, no obvious cause of referred pain to lower abdomen, nor obvious cause for her referred pain to the leg. Further workup advised with regular provider for ongoing issues as outpatient for now, encouraged to drink fluids, could consider recheck of laboratory studies again in the next week. Home with family. Return precautions discussed Discharge Plan Departure Patient Disposition: Home Clinical Impression: Abnormal laboratory test result, Sciatica, Abdominal pain Activity Restrictions/Additional Instructions: Initial primary evaluation for follow up of reported abnormal blood tests, you are told that your calcium level was high, and that your kidney function was worse. These labs were drawn on 08/20/2024. Repeat labs today showed improved value of your kidney function, similar range to older labs. Repeat labs today showed normal range calcium as well. Regarding some abdominal pain that you had been having, and sciatica issues, we did CT abdomen and pelvis looking for acute abnormalities that might explain your symptoms, and also mechanism to look at the spinal structures without IV contrast that might hurt your kidneys. CT scanning showed no acute abdominopelvic findings, no description of any spinal bony problems, copy of CT report from the radiologist provided for discharge. Copy of your laboratory test results provided for discharge. Follow up for further evaluation of your ongoing back pain and sciatica symptoms with your regular doctor. Drink plenty of fluids. Return to this/nearest emergency department for any change worsening symptoms or any concerns prior Prescriptions: No Action metformin 500 mg tablet 500 mg PO BID hydrochlorothiazide 12.5 mg tablet 12.5 mg PO DAILY rosuvastatin 10 mg tablet 10 mg PO ONCE PM losartan 50 mg tablet 50 mg PO DAILY gabapentin 300 mg capsule PO BID aspirin 81 mg tablet,delayed release (DR/EC) 81 mg PO DAILY methocarbamol 500 mg tablet 500 mg PO .BID PRN Qty: 10 0RF alendronate 70 mg tablet 70 mg PO QWEEK Qty: 8 3RF Referrals: Deanna Alanis DO [Primary Care Provider] - Stand Alone Forms: Patient Portal/API/Survey
--- NOTE | 2024-08-24 10:05 | DI.CT.S_ITS ---
PROCEDURE: CT ABDOMEN PELVIS WO CON INDICATIONS: abd pelvic pain TECHNIQUE: Axial sections were acquired from the lung bases to the pubic symphysis. Coronal and sagittal reformats were performed. For radiation dose reduction, the following was used: automated exposure control, adjustment of mA and/or kV according to patient size. COMPARISON: None. FINDINGS: Image quality: Diagnostic. Lower Chest: No significant findings. URINARY: Right Kidney: No stones or hydronephrosis. Right Ureter: No hydroureter. Left Kidney: No obstructing stones or hydronephrosis. 2 mm nonobstructing stone in lower pole left kidney. Simple appearing small left peripelvic renal cysts are seen. Left Ureter: No hydroureter. Bladder: Normal wall thickness. No stones. ABDOMEN: Liver: No contour-deforming solid mass. Gallbladder: No radiopaque gallstones or wall thickening. Biliary ducts: No biliary dilation. Pancreas: No ductal dilation. Spleen: Size is within normal limits. Adrenal Glands: No adrenal nodules. Stomach and Bowel: Normal colonic caliber, without significant wall thickening. Mild fecal stasis in the colon is seen. Appendix is visualized and is within normal limits. Sigmoid diverticulosis without CT evidence of acute diverticulitis. No abscess collection. Peritoneum: No abnormal intraperitoneal fluid. No free air. Ventral Wall: No hernia. Abdominal Nodes: No enlarged retroperitoneal or mesenteric lymph nodes. Vessels: Aorta and inferior vena cava are normal in size. PELVIS: Pelvic Organs: Unremarkable. Pelvic Nodes: Unremarkable. Miscellaneous: No inguinal hernias are seen. Bones: Post fusion changes are noted in lower lumbar spine at L3 through L5 levels. No acute vertebral body compression fracture. Degenerative disc disease throughout lower thoracic and lumbar spine is seen. IMPRESSION: 1. No obstructing stones or hydronephrosis. Nonobstructing stone in lower pole left kidney. Left peripelvic renal cysts. No hydroureter. Normal appearing urinary bladder. 2. Normal appendix. No bowel obstruction or abnormal bowel wall thickening. Mild constipation. Sigmoid diverticulosis without CT evidence of acute diverticulitis. Dictated by: Arthur Morejon M.D. on 08/24/2024 at 11:14 Approved by: Arthur Morejon M.D. on 08/24/2024 at 11:20
[2024-08-24 10:31] LABS: Add Manual Diff / Slide Review NO; Basophils Absolute Auto 0 /uL (0-100); Basophils Percent Auto 0.6 % (0-2); Eosinophils Absolute Auto 100 /uL (0-450); Eosinophils Percent Auto 1.5 % (2-4); Hematocrit 36.2 % (36-46); Hemoglobin 12.1 g/dL (12.0-16.0); Lymphocytes Absolute Auto 1300 /uL (1100-4500); Lymphocytes Percent Auto 16.2 % (25-40); Mean Corpuscular HGB Conc 33.4 % (30-36); Mean Corpuscular Hemoglobin 31.8 PG (26-34); Mean Corpuscular Volume 95.2 fL (80-100); Monocytes Absolute Auto 500 /uL (0-900); Monocytes Percent Auto 6.8 % (3-14); Neutrophils Absolute Auto 5900 /uL (1500-7000); Neutrophils Percent Auto 74.9 % (50-75); Platelet Count 248 X10^3/uL (150-400); Red Blood Cell Count 3.81 X10^6/uL (4.0-5.2); Red Cell Distribution Width 13.2 % (11.6-14.8); White Blood Cell Count 7.9 X10^3/uL (4.5-11.0)
[2024-08-24 10:43] LABS: Alanine Aminotransferase 24 IU/L (<35); Albumin 4.3 g/dL (3.5-5.0); Albumin Globulin Ratio 1.4 (1.0-2.8); Alkaline Phosphatase 66 U/L (38-126); Aspartate Aminotransferase 32 IU/L (14-36); Bilirubin Total 0.4 mg/dL (0.2-1.3); Blood Urea Nitrogen 33 mg/dL (7-17); Calcium 9.9 mg/dL (8.4-10.2); Carbon Dioxide 25 mmol/L (22-32); Chloride 104 mmol/L (98-107); Estimated Glomerular Filt Rate 44 mL/min (>60); Globulin 3.1 g/dL (1.7-4.1); Glucose 104 mg/dL (80-110); HEMOLYSIS < 15 (0-50); Lipase 71 U/L (23-300); Potassium 4.2 mmol/L (3.4-5.1); Sodium 133 mmol/L (137-145); Total Protein 7.4 g/dL (6.3-8.2)
[2024-08-24 11:07] VITALS: BP 143/74; PULSE 61; O2SAT 98
[2024-08-24 11:14] LABS: Appearance Urine UA CLEAR; Bilirubin Urine UA NEGATIVE (NEGATIVE); Color Urine UA YELLOW; Glucose Urine UA NEGATIVE (Negative); Ketones Urine UA NEGATIVE (NEGATIVE); Leukocyte Esterase Urine UA 1+ (NEGATIVE); Nitrite Urine UA NEGATIVE (Negative); Occult Blood Urine UA NEGATIVE (Negative); Protein Urine UA NEGATIVE (Negative); Urobilinogen Urine UA 0.2 E.U./dL (0.2)
[2024-08-24 11:27] LABS: Bacteria Urine Occasional (0-1); Culture Indicated Urine Specimen Cultured; RBC Urine 0-1/HPF (0-5/HPF); Squamous Epithelial Cell Urine 0-1 /HPF (0-5/HPF); Urine Volume 10mL (spun); WBC Urine 1-5/HPF (0-5/HPF)
[2024-08-24 11:30] VITALS: BP 146/67; PULSE 56; O2SAT 97
[2024-08-24 11:35] VITALS: PULSE 57; O2SAT 98
[2024-08-24 12:00] VITALS: BP 128/69; PULSE 61; O2SAT 97
[2024-08-24 12:19] VITALS: PULSE 61; O2SAT 97
--- NOTE | 2024-08-24 12:20 | PC.NURSE ---
Pt will continue to drink fluids when she gets home. Tolerated ice water at this time.
== END 2024-08-24 12:31 | disposition home or self-care (01) ==
PROVIDERS: Emergency Provider Emergency Medicine; PCP Family Medicine
DX: R94.4 Abnormal results of kidney function studies (principal); R10.30 Lower abdominal pain, unspecified; M54.42 Lumbago with sciatica, left side
CPT/HCPCS: 74176; 80053; 81001; 83690; 85025; 87086; 99282; 99284

== ENCOUNTER → 2024-09-27 10:03 | Outpatient (CLI) | payer MEDICARE, OTHER, SELFPAY ==
--- NOTE | 2024-09-27 10:05 | DI.US.S_ITS ---
LIMITED ULTRASOUND OF LEFT BREAST: 09/27/2024 CLINICAL: Focal left breast pain. Comparison is made to exams dated: 09/27/2024 mammogram and 12/29/2023 mammogram - [facility]. Real-time ultrasound of the left breast 2 o'clock region was performed. Bosch scale images of the real-time examination were reviewed. No significant abnormalities were seen sonographically in the left breast. IMPRESSION: NEGATIVE There is no sonographic evidence of malignancy. There is no abnormality seen in the left breast to correspond with the area of clinical concern and pain at 2 o'clock, however, recommend clinical follow up for persistent or worsening symptoms, or development of any clinically suspicious findings. A 1 year screening mammogram is recommended. Findings and recommendations were conveyed to the patient during today's evaluation. This exam was interpreted at Station ID: [id number]. Electronically Signed By: Caesar Roldan M.D. at/:09/27/2024 12:25:45 letter sent: Clinical Evaluation ACR BI-RADS Category 1: Negative
--- NOTE | 2024-09-27 10:05 | DI.MG.S_ITS ---
BILATERAL DIGITAL DIAGNOSTIC MAMMOGRAM 3D/2D: 09/27/2024 CLINICAL: Left breast pain. Comparison is made to exams dated: 12/29/2023 mammogram, 12/25/2022 mammogram, 12/09/2022 mammogram, and 12/06/2021 mammogram - [facility]. There are scattered areas of fibroglandular density (category b / 25%-50% glandular tissue). No significant masses, calcifications, or other findings are seen in either breast. IMPRESSION: INCOMPLETE: NEED ADDITIONAL IMAGING EVALUATION There is no abnormality seen in the left breast to correspond with the area of clinical concern and pain indicated by square marker in the middle depth, however, ultrasound is recommended for further evaluation and is scheduled to immediately follow this examination. Based on the Tyrer Cuzick model (a risk assessment model) the patient's lifetime risk is 8.0% and her 10 year risk is 4.4%. According to the ACR, ACS, and NCCN guidelines, an annual breast MRI exam along with mammogram is recommended if the patient's lifetime risk is 20% or greater. This exam was interpreted at Station ID: [id number]. NOTE: For mammograms, a report in lay terms will be sent to the patient. Approximately 15% of breast malignancies will not be visualized mammographically. In the management of a palpable breast mass, a negative mammogram must not discourage biopsy of a clinically suspicious lesion. Electronically Signed By: Caesar Roldan M.D. aty/:09/27/2024 12:24:11 letter sent: Additional Imaging Needed ACR BI-RADS Category 0: Incomplete: Need Additional Imaging Evaluation
== END ==
PROVIDERS: Family Provider Family Medicine; PCP Family Medicine; Referring Provider Family Medicine; Visit Provider Family Medicine
DX: N64.4 Mastodynia (principal); R92.8 Other abnormal and inconclusive findings on diagnostic imaging of breast
CPT/HCPCS: 76642; 77066; G0279

== ENCOUNTER → 2024-10-01 10:17 | Outpatient (CLI) | payer MEDICARE, OTHER, SELFPAY ==
[2024-10-01 12:02] LABS: Prothrombin Time 10.8 SECONDS (9.4-12.5)
[2024-10-01 12:10] LABS: Appearance Urine UA CLEAR; Bilirubin Urine UA NEGATIVE (NEGATIVE); Color Urine UA YELLOW; Glucose Urine UA NEGATIVE (Negative); Ketones Urine UA NEGATIVE (NEGATIVE); Leukocyte Esterase Urine UA TRACE (NEGATIVE); Nitrite Urine UA NEGATIVE (Negative); Occult Blood Urine UA NEGATIVE (Negative); Protein Urine UA NEGATIVE (Negative); Urobilinogen Urine UA 0.2 E.U./dL (0.2)
[2024-10-01 12:17] LABS: pH Urine UA 5.5 (4.5-8.0)
[2024-10-01 12:26] LABS: Bacteria Urine None Seen; Culture Indicated Urine Specimen Cultured; RBC Urine None Seen (0-5/HPF); Squamous Epithelial Cell Urine None Seen (0-5/HPF); Urine Volume 10mL (spun); WBC Urine 1-5/HPF (0-5/HPF)
[2024-10-01 12:40] LABS: TSH w/ Reflex to FT4 2.26 uIU/mL (0.47-4.68)
== END ==
PROVIDERS: Family Provider Family Medicine; PCP Family Medicine; Referring Provider Family Medicine; Visit Provider Family Medicine
DX: N18.31 Chronic kidney disease, stage 3a (principal); E83.52 Hypercalcemia; Z87.448 Personal history of other diseases of urinary system; R74.8 Abnormal levels of other serum enzymes; M79.10 Myalgia, unspecified site
CPT/HCPCS: 36415; 81001; 84443; 85610; 87040; 87086

== ENCOUNTER → 2024-10-28 13:39 | Outpatient (CLI) | payer MEDICARE, OTHER, SELFPAY ==
[2024-10-28 14:40] LABS: Albumin 4.7 g/dL (3.5-5.0); BUN Creatinine Ratio 25.5 (6-22); Blood Urea Nitrogen 35 mg/dL (7-17); Calcium 9.8 mg/dL (8.4-10.2); Carbon Dioxide 24 mmol/L (22-32); Chloride 97 mmol/L (98-107); Estimated Glomerular Filt Rate 42 mL/min (>60); Glucose 149 mg/dL (80-110); HEMOLYSIS < 15 (0-50); Phosphorous 3.3 mg/dL (2.8-4.1); Potassium 4.1 mmol/L (3.4-5.1); Sodium 133 mmol/L (137-145)
[2024-10-29 17:26] LABS: Creatine Kinase 441 U/L (30-135)
== END ==
LOC: LAB 13:40
PROVIDERS: Family Provider Family Medicine; PCP Family Medicine; Referring Provider Family Medicine; Visit Provider Family Medicine
DX: R94.4 Abnormal results of kidney function studies (principal)
CPT/HCPCS: 36415; 80069; 82550

== ENCOUNTER 2024-10-28 14:30 | Outpatient (RCR) | payer MEDICARE, OTHER, SELFPAY ==
--- NOTE | 2024-09-20 16:13 | PT.OIE ---
Current Diagnoses Myalgia, unspecified site (09/20/24) Pain in right leg (09/20/24) Pain in left leg (09/20/24) Strain of adductor muscle, fascia and tendon of unspecified thigh, initial encounter (09/20/24) Strain of adductor muscle, fascia and tendon of unspecified thigh, subsequent encounter (09/20/24) Past Medical History (Last Updated 03/01/24 @ 20:08 by Trish Bran) Carpal tunnel syndrome (~2022) Chicken pox Chronic headaches Diabetes mellitus type 2, controlled Hearing loss (~2020) History of kidney disease (~2021) Hypertension Lumbar disc disease (~2008) Measles Mumps UTI (urinary tract infection) Past Surgical History (Last Updated 03/01/24 @ 20:08 by Trish Bran) Anesthesia History of colonoscopy (~2023) History of lumbar fusion History of partial hysterectomy (~1994) History of tonsillectomy (~1963) Visit Care Team Role Provider Type Deanna Alanis DO Attending Provider Physician Family Provider Primary Care Provider Referring Provider Specialty: [facility] Practice Address: [address] [place] [address], [address], [facility] Email: [email or web address] Physical Therapy Initial Evaluation PT-OP-A Visit Information Start: 09/20/24 13:50 Freq: Status: Active Protocol: Document 09/20/24 12:15 DCW (Rec: 09/20/24 14:16 DCW [id number]) Out-Patient Physical Therapy Visit Information Visit Information Visit Type Initial Evaluation Visit Start Time 12:15 Visit Stop Time 13:00 Visit Number 1 Number of RN FIELD Visits 0 Evaluation Information Evaluation Date 09/20/24 PT-OP-B Current Condition Start: 09/20/24 13:50 Freq: Status: Active Protocol: Document 09/20/24 12:15 DCW (Rec: 09/20/24 14:16 DCW [id number]) Current Condition History of Current Condition Onset Date 3-4 month history Current Complaints Left hip, groin, leg pain History of Current Condition Pt is a 69 year old female presenting with a 3-4 month history of L>E LE pain, spasm, and weakness. Pt notes pain seems like it begins at her left groin, and travels down the inside of her thigh to her medial knee. Occasionally happens less severely on the right side, but mainly the left. Notes two or three times , she has had spasms in her leg that drop me to the floor . Does try to stay active, walks with a walking group a couple times a week, and does a weekly [employer] class. A few days after a PCP appointment last month, she was sent ot the ED due to findings in her blood work made them concerned about her kidneys. Follow-up bloodwork was largely WNL, but while in the ED, she received pelvis/abdominal CT scan, which was unremarkable. Hip x- rays show moderate arthritic changes. Notes her pain has been bothering her sleep, typically wakes up after 4-5 hours, and then is unable to get back to sleep. Notes she got a couple stretching exercises from her PCP, but hasn't noticed them making much of a difference. Prior Treatments and Tests Pelvis X-ray: IMPRESSION: Moderate bilateral hip arthritic change. per Rajani Gutierrez M.D. on 08/20/[address]: IMPRESSION: 1. No obstructing stones or hydronephrosis. Nonobstructing stone in lower pole left kidney. Left peripelvic renal cysts. No hydroureter. Normal appearing urinary bladder. 2. Normal appendix. No bowel obstruction or abnormal bowel wall thickening. Mild constipation. Sigmoid diverticulosis without CT evidence of acute diverticulitis. per Arthur Morejon M.D. on 08/24/2024 Treatment Goals Patient/Caregiver Goals Uninturrupted sleep, get back to usual participation in exercise. PT-OP-C Subjective Start: 09/20/24 13:50 Freq: Status: Active Protocol: Document 09/20/24 12:15 DCW (Rec: 09/20/24 14:16 DCW [id number]) OP-PT Subjective Patient Comments Patient Comments It gets tremendously painful. Patient Reported Progress Worse Patient Questionnaires Lower Extremity Functional Scale LEFS Score 51/80 = 63.75% LEFS Impairment 20 to 39% Impaired (Score 48- 62) PT-OP-F Manual Assessment Start: 09/20/24 13:50 Freq: Status: Active Protocol: Document 09/20/24 12:15 DCW (Rec: 09/20/24 14:16 DCW [id number]) Manual Assessments Soft Tissue Assessment Soft Tissue Mobility Assessment Tenderness to palpation along entirety of bilateral lower extremities 3/4: Wincing and withdraw. Pt incredibly sensitive to all palpation, during special testing, most discomfort was not caused pt the positioning or motion, but the light pressure against her soft tissue. PT-OP-L Special Tests Start: 09/20/24 13:50 Freq: Status: Active Protocol: Document 09/20/24 12:15 DCW (Rec: 09/20/24 14:16 DCW [id number]) Special Tests Lumbar Spine Special Tests ALICIA Test Results Negative Straight Leg Raise Test Results Negative Slump Test Results Negative Manual Traction Test Results Negative Compression Test Results Negative A-P Shearing Test Results Negative Hip Special Tests Scour Test Test Results Negative Piriformis Test Results Negative PT-OP-M Strength Start: 09/20/24 13:50 Freq: Status: Active Protocol: Document 09/20/24 12:15 DCW (Rec: 09/20/24 14:16 DCW [id number]) Hip Strength Hip Manual Muscle Testing Right Flexion (L2) 3+ Fair+ Abduction 4- Good- Adduction 4- Good- External Rotation 4- Good- Internal Rotation 4 Good Left Flexion (L2) 3+ Fair+ Abduction 4- Good- Adduction 4- Good- External Rotation 4- Good- Internal Rotation 4 Good Knee Strength Knee Manual Muscle Testing Right Flexion (S2) 4- Good- Extension (L3) 4- Good- Left Flexion (S2) 4- Good- Extension (L3) 4- Good- PT-OP-Q Treatments Start: 09/20/24 13:50 Freq: Status: Active Protocol: Document 09/20/24 12:15 DCW (Rec: 09/20/24 14:16 DCW [id number]) Therapeutic Exercises Sidelying Exercises Hip abduction Sidelying Exercise Name Hip Abduction Reverse Clamshell Sidelying Exercise Name Reverse Clamshell Clamshell Sidelying Exercise Name Clamshell PT-OP-T Assessment and Plan Start: 09/20/24 13:50 Freq: Status: Active Protocol: Document 09/20/24 12:15 DCW (Rec: 09/20/24 14:29 DCW [id number]) Physical Therapy Assessment Rehab Potential Rehabilitation Potential Fair Evaluation Complexity Number of Personal Factors/Comorbidities 3 or More Number of Body Systems Impaired 4 or More Clinical Presentation at Evaluation Evolving Impairments Impairments Functional Activities, Functional Mobility,Pain,Soft Tissue Mobility,Strength,Tone Goals Three Impairment Pt displays general lower extremity weakness bilaterally [employer] Goal (LTG) Pt to demonstrate MMT of 4/5 or better in all tests hip planes bilaterally in order to demonstrate improved lower extremity strength and improved functional mobility. LTG Duration 11/18/24 Two Impairment Pt notes pain inturrupts sleep most nights [employer] Goal (LTG) Pt to report pain does not wake her up for at least 5 days over the course of a week . LTG Duration 11/18/24 One Impairment Pt does not have an appropriate home exercise program Short Term Goal (STG) Pt to be compliant with independent with an appropriate HEP STG Duration 10/21/24 Assessment Summary Assessment Pt presents with signs and symptoms consistent with referring diagnosis. Pt very tender with all soft tissue palpation throughout her lower extremities, making DDx fairly difficult. Special testing largely unremarkable. MMT shows somewhat significant LE weakness, but appears to be more that pt is hesitant to put much force against resistance vs true weakness. Groin pain and medial thigh pain may suggest acetabular involvement, but further testing may be required. Pt will likely benefit from skilled therapy focusing on tone management, pain, and LE strengthening in order to improve functional mobility and improve sleep habits. If pt does not progress as expected, may benefit from further imaging or a referral to ortho. Physical Therapy Plan Frequency and Duration Frequency of Treatment 2x/Week Plan of Care Start Date 09/20/24 Plan of Care End Date 11/18/24 Therapeutic Interventions Therapeutic Interventions Home Exercise Program,Joint Mobilizations,Manual Therapy, Neuromuscular Re-education, Patient/Caregiver Education, Self-Care/Home Management,Soft Tissue Mobilization, Therapeutic Activities, Therapeutic Exercises Modalities Cold Pack/Ice Massage,Hot Packs Next Visit Focus/Plan Next Note Type Treatment Note Next Visit Plan LE strengthening, stretching, STM as tolerated
--- NOTE | 2024-09-22 11:33 | PT.OTN ---
Current Diagnoses Myalgia, unspecified site (09/22/24) Pain in right leg (09/22/24) Pain in left leg (09/22/24) Strain of adductor muscle, fascia and tendon of unspecified thigh, initial encounter (09/22/24) Strain of adductor muscle, fascia and tendon of unspecified thigh, subsequent encounter (09/22/24) Physical Therapy Treatment Note PT-OP-A Visit Information Start: 09/20/24 13:50 Freq: Status: Active Protocol: Document 09/22/24 10:45 DCW (Rec: 09/22/24 11:33 DCW [id number]) Out-Patient Physical Therapy Visit Information Visit Information Visit Type Treatment Note Visit Start Time 10:45 Visit Stop Time 11:30 Visit Number 2 Number of BACK MAKER Visits 0 Evaluation Information Evaluation Date 09/20/24 PT-OP-B Current Condition Start: 09/20/24 13:50 Freq: Status: Active Protocol: Document 09/20/24 12:15 DCW (Rec: 09/20/24 14:16 DCW [id number]) Current Condition History of Current Condition Onset Date 3-4 month history Current Complaints Left hip, groin, leg pain History of Current Condition Pt is a 69 year old female presenting with a 3-4 month history of L>E LE pain, spasm, and weakness. Pt notes pain seems like it begins at her left groin, and travels down the inside of her thigh to her medial knee. Occasionally happens less severely on the right side, but mainly the left. Notes two or three times , she has had spasms in her leg that drop me to the floor . Does try to stay active, walks with a walking group a couple times a week, and does a weekly [employer] class. A few days after a PCP appointment last month, she was sent ot the ED due to findings in her blood work made them concerned about her kidneys. Follow-up bloodwork was largely WNL, but while in the ED, she received pelvis/abdominal CT scan, which was unremarkable. Hip x- rays show moderate arthritic changes. Notes her pain has been bothering her sleep, typically wakes up after 4-5 hours, and then is unable to get back to sleep. Notes she got a couple stretching exercises from her PCP, but hasn't noticed them making much of a difference. Prior Treatments and Tests Pelvis X-ray: IMPRESSION: Moderate bilateral hip arthritic change. per Rajani Gutierrez M.D. on 08/20/[address]: IMPRESSION: 1. No obstructing stones or hydronephrosis. Nonobstructing stone in lower pole left kidney. Left peripelvic renal cysts. No hydroureter. Normal appearing urinary bladder. 2. Normal appendix. No bowel obstruction or abnormal bowel wall thickening. Mild constipation. Sigmoid diverticulosis without CT evidence of acute diverticulitis. per Arthur Morejon M.D. on 08/24/2024 Treatment Goals Patient/Caregiver Goals Uninturrupted sleep, get back to usual participation in exercise. PT-OP-C Subjective Start: 09/20/24 13:50 Freq: Status: Active Protocol: Document 09/22/24 10:45 DCW (Rec: 09/22/24 11:33 DCW [id number]) OP-PT Subjective Patient Comments Patient Comments Pt admits she was pretty sore following her eval, took a nap after getting home, then felt better. Has done her HEP one time since her eval, no pain when doing them. PT-OP-F Manual Assessment Start: 09/20/24 13:50 Freq: Status: Active Protocol: Document 09/20/24 12:15 DCW (Rec: 09/20/24 14:16 DCW [id number]) Manual Assessments Soft Tissue Assessment Soft Tissue Mobility Assessment Tenderness to palpation along entirety of bilateral lower extremities 3/4: Wincing and withdraw. Pt incredibly sensitive to all palpation, during special testing, most discomfort was not caused pt the positioning or motion, but the light pressure against her soft tissue. PT-OP-L Special Tests Start: 09/20/24 13:50 Freq: Status: Active Protocol: Document 09/20/24 12:15 DCW (Rec: 09/20/24 14:16 DCW [id number]) Special Tests Lumbar Spine Special Tests ALICIA Test Results Negative Straight Leg Raise Test Results Negative Slump Test Results Negative Manual Traction Test Results Negative Compression Test Results Negative A-P Shearing Test Results Negative Hip Special Tests Scour Test Test Results Negative Piriformis Test Results Negative PT-OP-M Strength Start: 09/20/24 13:50 Freq: Status: Active Protocol: Document 09/20/24 12:15 DCW (Rec: 09/20/24 14:16 DCW [id number]) Hip Strength Hip Manual Muscle Testing Right Flexion (L2) 3+ Fair+ Abduction 4- Good- Adduction 4- Good- External Rotation 4- Good- Internal Rotation 4 Good Left Flexion (L2) 3+ Fair+ Abduction 4- Good- Adduction 4- Good- External Rotation 4- Good- Internal Rotation 4 Good Knee Strength Knee Manual Muscle Testing Right Flexion (S2) 4- Good- Extension (L3) 4- Good- Left Flexion (S2) 4- Good- Extension (L3) 4- Good- PT-OP-Q Treatments Start: 09/20/24 13:50 Freq: Status: Active Protocol: Document 09/22/24 10:45 DCW (Rec: 09/22/24 11:33 DCW [id number]) Gym Equipment Shuttle Recovery Unilateral Squats Resistance 37# Bilateral Squats Details Increase weight next visit Resistance 50# Therapeutic Exercises Supine Exercises ITB Stretch Supine Exercise Name ITB Stretch Side bilateral Comments Manual stretch Hamstring Stretch Supine Exercise Name Hamstring Stretch Side bilateral Comments Manual stretch Hip Flexor Supine Exercise Name Flexor stretch - leg of table Side bilateral Standing Exercises Hip Flexor Stretch Standing Exercise Name Hip Flexor Stretch - Half Kneel Side bilateral Other Exercises Step-ups Other Exercise Name Step-ups Side bilateral Equipment Used 6 step Resisted Ambulation Other Exercise Name Resisted side-stepping Resistance Lv 2 PT-OP-T Assessment and Plan Start: 09/20/24 13:50 Freq: Status: Active Protocol: Document 09/22/24 10:45 DCW (Rec: 09/22/24 11:33 DCW [id number]) Physical Therapy Assessment Impairments Impairments Functional Activities, Functional Mobility,Pain,Soft Tissue Mobility,Strength,Tone Goals Three Impairment Pt displays general lower extremity weakness bilaterally Assisted Goal (LTG) Pt to demonstrate MMT of 4/5 or better in all tests hip planes bilaterally in order to demonstrate improved lower extremity strength and improved functional mobility. LTG Duration 11/18/24 Two Impairment Pt notes pain inturrupts sleep most nights Assisted Goal (LTG) Pt to report pain does not wake her up for at least 5 days over the course of a week . LTG Duration 11/18/24 One Impairment Pt does not have an appropriate home exercise program Short Term Goal (STG) Pt to be compliant with independent with an appropriate HEP STG Duration 10/21/24 Assessment Summary Assessment Pt very fatigued by end of session, but felt she had a good workout. Did have a few instances of leg cramping up in her quad and calf, both left sided. Continue to work on improving strength, functional mobility, and flexibility. Physical Therapy Plan Frequency and Duration Frequency of Treatment 2x/Week Plan of Care Start Date 09/20/24 Plan of Care End Date 11/18/24 Therapeutic Interventions Therapeutic Interventions Home Exercise Program,Joint Mobilizations,Manual Therapy, Neuromuscular Re-education, Patient/Caregiver Education, Self-Care/Home Management,Soft Tissue Mobilization, Therapeutic Activities, Therapeutic Exercises Modalities Cold Pack/Ice Massage,Hot Packs Next Visit Focus/Plan Next Note Type Treatment Note Next Visit Plan LE strengthening, stretching, STM as tolerated
--- NOTE | 2024-09-28 12:38 | PT.OTN ---
Current Diagnoses Myalgia, unspecified site (09/28/24) Pain in right leg (09/28/24) Pain in left leg (09/28/24) Strain of adductor muscle, fascia and tendon of unspecified thigh, initial encounter (09/28/24) Strain of adductor muscle, fascia and tendon of unspecified thigh, subsequent encounter (09/28/24) Physical Therapy Treatment Note PT-OP-A Visit Information Start: 09/20/24 13:50 Freq: Status: Active Protocol: Document 09/28/24 11:39 NBM (Rec: 09/28/24 12:37 NBM [id number]) Out-Patient Physical Therapy Visit Information Visit Information Visit Type Treatment Note Visit Start Time 11:39 Visit Stop Time 12:20 Visit Number 3 Number of BERRY PICKER MACHINE OPERATOR Visits 1 Evaluation Information Evaluation Date 09/20/24 PT-OP-B Current Condition Start: 09/20/24 13:50 Freq: Status: Active Protocol: Document 09/20/24 12:15 DCW (Rec: 09/20/24 14:16 DCW [id number]) Current Condition History of Current Condition Onset Date 3-4 month history Current Complaints Left hip, groin, leg pain History of Current Condition Pt is a 69 year old female presenting with a 3-4 month history of L>E LE pain, spasm, and weakness. Pt notes pain seems like it begins at her left groin, and travels down the inside of her thigh to her medial knee. Occasionally happens less severely on the right side, but mainly the left. Notes two or three times , she has had spasms in her leg that drop me to the floor . Does try to stay active, walks with a walking group a couple times a week, and does a weekly [employer] class. A few days after a PCP appointment last month, she was sent ot the ED due to findings in her blood work made them concerned about her kidneys. Follow-up bloodwork was largely WNL, but while in the ED, she received pelvis/abdominal CT scan, which was unremarkable. Hip x- rays show moderate arthritic changes. Notes her pain has been bothering her sleep, typically wakes up after 4-5 hours, and then is unable to get back to sleep. Notes she got a couple stretching exercises from her PCP, but hasn't noticed them making much of a difference. Prior Treatments and Tests Pelvis X-ray: IMPRESSION: Moderate bilateral hip arthritic change. per Rajani Gutierrez M.D. on 08/20/[address]: IMPRESSION: 1. No obstructing stones or hydronephrosis. Nonobstructing stone in lower pole left kidney. Left peripelvic renal cysts. No hydroureter. Normal appearing urinary bladder. 2. Normal appendix. No bowel obstruction or abnormal bowel wall thickening. Mild constipation. Sigmoid diverticulosis without CT evidence of acute diverticulitis. per Arthur Morejon M.D. on 08/24/2024 Treatment Goals Patient/Caregiver Goals Uninturrupted sleep, get back to usual participation in exercise. PT-OP-C Subjective Start: 09/20/24 13:50 Freq: Status: Active Protocol: Document 09/28/24 11:39 NBM (Rec: 09/28/24 12:37 NBM [id number]) OP-PT Subjective Patient Comments Patient Comments Leah reports her legs feel heavy today and it's affecting her ambulation. She's not sure if she's doing the stretch with the chair right. PT-OP-F Manual Assessment Start: 09/20/24 13:50 Freq: Status: Active Protocol: Document 09/20/24 12:15 DCW (Rec: 09/20/24 14:16 DCW [id number]) Manual Assessments Soft Tissue Assessment Soft Tissue Mobility Assessment Tenderness to palpation along entirety of bilateral lower extremities 3/4: Wincing and withdraw. Pt incredibly sensitive to all palpation, during special testing, most discomfort was not caused pt the positioning or motion, but the light pressure against her soft tissue. PT-OP-L Special Tests Start: 09/20/24 13:50 Freq: Status: Active Protocol: Document 09/20/24 12:15 DCW (Rec: 09/20/24 14:16 DCW [id number]) Special Tests Lumbar Spine Special Tests ALICIA Test Results Negative Straight Leg Raise Test Results Negative Slump Test Results Negative Manual Traction Test Results Negative Compression Test Results Negative A-P Shearing Test Results Negative Hip Special Tests Scour Test Test Results Negative Piriformis Test Results Negative PT-OP-M Strength Start: 09/20/24 13:50 Freq: Status: Active Protocol: Document 09/20/24 12:15 DCW (Rec: 09/20/24 14:16 DCW [id number]) Hip Strength Hip Manual Muscle Testing Right Flexion (L2) 3+ Fair+ Abduction 4- Good- Adduction 4- Good- External Rotation 4- Good- Internal Rotation 4 Good Left Flexion (L2) 3+ Fair+ Abduction 4- Good- Adduction 4- Good- External Rotation 4- Good- Internal Rotation 4 Good Knee Strength Knee Manual Muscle Testing Right Flexion (S2) 4- Good- Extension (L3) 4- Good- Left Flexion (S2) 4- Good- Extension (L3) 4- Good- PT-OP-Q Treatments Start: 09/20/24 13:50 Freq: Status: Active Protocol: Document 09/28/24 11:39 NBM (Rec: 09/28/24 12:37 [facility] [id number]) Gym Equipment Shuttle Recovery Unilateral Squats Details Joseph Resistance 37# Shuttle Recovery Platform Stable Reps/Time x8 ea (fatigued) Bilateral Squats Details Increase weight next visit Resistance 62# Shuttle Recovery Platform Stable Reps/Time x10 (fatigued), vc LE alignment Therapeutic Exercises Supine Exercises ITB Stretch Supine Exercise Name ITB Stretch (HEP) Side bilateral Equipment Used /c strap Reps/Minutes 30 ea Hamstring Stretch Supine Exercise Name Hamstring Stretch (HEP) Side bilateral Equipment Used /c strap Reps/Minutes 30 ea Sidelying Exercises Hip abduction Sidelying Exercise Name Hip Abduction Side bilateral Reps/Minutes x15 ea Comments cued pain-free range, knee ext , breath Reverse Clamshell Sidelying Exercise Name Reverse Clamshell Side bilateral Reps/Minutes x15 ea Comments vc breath Clamshell Sidelying Exercise Name Clamshell Reps/Minutes x15 ea Comments vc breath Sitting Exercises HS stretch Sitting Exercise Name (HEP) Side bilateral Equipment Used standard mesh chair Reps/Minutes 3 x30 ea Standing Exercises HS curls Side bilateral Reps/Minutes 2x5 ea Comments 1 R HS cramp resolves w/ stretch HS stretch Side bilateral Equipment Used hand rail Comments cues for trunk to floor Hip Flexor Stretch Standing Exercise Name Hip Flexor Stretch - Half Kneel Side bilateral Equipment Used mesh chair behind, rail in front for balance Comments 1 R HS cramp w/ HS curl to place RLE Other Exercises Step-ups Other Exercise Name Step-ups Side bilateral Equipment Used 6 step, handrail for balance Resisted Ambulation Other Exercise Name Resisted side-stepping Side bilateral Resistance Lv 2 Equipment Used handrail Reps/Minutes 10 ft x2 ea PT-OP-R Modalities Start: 09/28/24 12:37 Freq: Status: Active Protocol: Document 09/28/24 11:39 NBM (Rec: 09/28/24 12:38 NBM [id number]) Hot Pack/Cold Pack Treatment Cold Pack Location L knee, lumbar anterior, cervical posterior Patient Position Hooklying Patient Tolerance Good Comments 8' PT-OP-T Assessment and Plan Start: 09/20/24 13:50 Freq: Status: Active Protocol: Document 09/28/24 11:39 NBM (Rec: 09/28/24 12:37 NBM [id number]) Physical Therapy Assessment Goals Three Impairment Pt displays general lower extremity weakness bilaterally Fdc Goal (LTG) Pt to demonstrate MMT of 4/5 or better in all tests hip planes bilaterally in order to demonstrate improved lower extremity strength and improved functional mobility. LTG Duration 11/18/24 Two Impairment Pt notes pain inturrupts sleep most nights Aircraft Instrument Mechanic Goal (LTG) Pt to report pain does not wake her up for at least 5 days over the course of a week . LTG Duration 11/18/24 One Impairment Pt does not have an appropriate home exercise program Short Term Goal (STG) Pt to be compliant with independent with an appropriate HEP STG Duration 10/21/24 Assessment Summary Assessment Leah requires cues for neutral foot positioning and LE alignment with resisted sidestepping and supine leg press. She demos improved self -awareness of each but fatigues at 37# x8 reps each for unilateral leg press and 50#x15 reps for bilateral. She has R Hamstring cramping twice during session, once performing HS curl for R foot placement onto chair and once after 5 HS curls; cramp resolves with cueing for HS stretch. Sidelying Hip abduction is challenging but pt's report of knee pain resolves with cues for pain- free range. Cues for increased hip flexion for 6 step ups instead of circumduction compensation. Edu to pt regarding stretching only in pain-free range. Cryotherapy end of session for 4/10 L knee pain along medial joint line; improves to 3/10 after. Added to HEP: supine HS and ITB stretch w/ strap and seated HS stretch - HO given. Physical Therapy Plan Frequency and Duration Frequency of Treatment 2x/Week Plan of Care Start Date 09/20/24 Plan of Care End Date 11/18/24 Therapeutic Interventions Therapeutic Interventions Home Exercise Program,Joint Mobilizations,Manual Therapy, Neuromuscular Re-education, Patient/Caregiver Education, Self-Care/Home Management,Soft Tissue Mobilization, Therapeutic Activities, Therapeutic Exercises Modalities Cold Pack/Ice Massage,Hot Packs Next Visit Focus/Plan Next Note Type Treatment Note Next Visit Plan LE strengthening, stretching, STM as tolerated
--- NOTE | 2024-10-01 12:38 | PT.OTN ---
Current Diagnoses Myalgia, unspecified site (10/01/24) Pain in right leg (10/01/24) Pain in left leg (10/01/24) Strain of adductor muscle, fascia and tendon of unspecified thigh, initial encounter (10/01/24) Strain of adductor muscle, fascia and tendon of unspecified thigh, subsequent encounter (10/01/24) Physical Therapy Treatment Note PT-OP-A Visit Information Start: 09/20/24 13:50 Freq: Status: Active Protocol: Document 10/01/24 11:41 NBM (Rec: 10/01/24 12:37 NBM [id number]) Out-Patient Physical Therapy Visit Information Visit Information Visit Type Treatment Note Visit Start Time 11:35 Visit Stop Time 12:20 Visit Number 4 Number of PUBLIC RELATIONS Visits 2 Evaluation Information Evaluation Date 09/20/24 PT-OP-B Current Condition Start: 09/20/24 13:50 Freq: Status: Active Protocol: Document 09/20/24 12:15 DCW (Rec: 09/20/24 14:16 DCW [id number]) Current Condition History of Current Condition Onset Date 3-4 month history Current Complaints Left hip, groin, leg pain History of Current Condition Pt is a 69 year old female presenting with a 3-4 month history of L>E LE pain, spasm, and weakness. Pt notes pain seems like it begins at her left groin, and travels down the inside of her thigh to her medial knee. Occasionally happens less severely on the right side, but mainly the left. Notes two or three times , she has had spasms in her leg that drop me to the floor . Does try to stay active, walks with a walking group a couple times a week, and does a weekly [employer] class. A few days after a PCP appointment last month, she was sent ot the ED due to findings in her blood work made them concerned about her kidneys. Follow-up bloodwork was largely WNL, but while in the ED, she received pelvis/abdominal CT scan, which was unremarkable. Hip x- rays show moderate arthritic changes. Notes her pain has been bothering her sleep, typically wakes up after 4-5 hours, and then is unable to get back to sleep. Notes she got a couple stretching exercises from her PCP, but hasn't noticed them making much of a difference. Prior Treatments and Tests Pelvis X-ray: IMPRESSION: Moderate bilateral hip arthritic change. per Rajani Gutierrez M.D. on 08/20/[address]: IMPRESSION: 1. No obstructing stones or hydronephrosis. Nonobstructing stone in lower pole left kidney. Left peripelvic renal cysts. No hydroureter. Normal appearing urinary bladder. 2. Normal appendix. No bowel obstruction or abnormal bowel wall thickening. Mild constipation. Sigmoid diverticulosis without CT evidence of acute diverticulitis. per Arthur Morejon M.D. on 08/24/2024 Treatment Goals Patient/Caregiver Goals Uninturrupted sleep, get back to usual participation in exercise. PT-OP-C Subjective Start: 09/20/24 13:50 Freq: Status: Active Protocol: Document 10/01/24 11:41 NBM (Rec: 10/01/24 12:37 NBM [id number]) OP-PT Subjective Patient Comments Patient Comments Leah reports she felt it after last visit but it was not too much. She struggles with hip flexor stretch with chair. End of session she reports she used to use recumbent bike at home until MD told her to stop two months ago and would like to use it again. PT-OP-F Manual Assessment Start: 09/20/24 13:50 Freq: Status: Active Protocol: Document 09/20/24 12:15 DCW (Rec: 09/20/24 14:16 DCW [id number]) Manual Assessments Soft Tissue Assessment Soft Tissue Mobility Assessment Tenderness to palpation along entirety of bilateral lower extremities 3/4: Wincing and withdraw. Pt incredibly sensitive to all palpation, during special testing, most discomfort was not caused pt the positioning or motion, but the light pressure against her soft tissue. PT-OP-L Special Tests Start: 09/20/24 13:50 Freq: Status: Active Protocol: Document 09/20/24 12:15 DCW (Rec: 09/20/24 14:16 DCW [id number]) Special Tests Lumbar Spine Special Tests ALICIA Test Results Negative Straight Leg Raise Test Results Negative Slump Test Results Negative Manual Traction Test Results Negative Compression Test Results Negative A-P Shearing Test Results Negative Hip Special Tests Scour Test Test Results Negative Piriformis Test Results Negative PT-OP-M Strength Start: 09/20/24 13:50 Freq: Status: Active Protocol: Document 09/20/24 12:15 DCW (Rec: 09/20/24 14:16 DCW [id number]) Hip Strength Hip Manual Muscle Testing Right Flexion (L2) 3+ Fair+ Abduction 4- Good- Adduction 4- Good- External Rotation 4- Good- Internal Rotation 4 Good Left Flexion (L2) 3+ Fair+ Abduction 4- Good- Adduction 4- Good- External Rotation 4- Good- Internal Rotation 4 Good Knee Strength Knee Manual Muscle Testing Right Flexion (S2) 4- Good- Extension (L3) 4- Good- Left Flexion (S2) 4- Good- Extension (L3) 4- Good- PT-OP-Q Treatments Start: 09/20/24 13:50 Freq: Status: Active Protocol: Document 10/01/24 11:41 NBM (Rec: 10/01/24 12:37 NBM [id number]) Gym Equipment Shuttle Recovery calf stretch Details criss Resistance 37# Shuttle Recovery Platform Stable Reps/Time heels off platform, 1' hold Unilateral Squats Details Criss Resistance 37# Shuttle Recovery Platform Stable Reps/Time x10 ea (fatigued) Bilateral Squats Resistance 62# Shuttle Recovery Platform Stable Reps/Time x15 (fatigued), vc LE alignment Therapeutic Exercises Supine Exercises Hip Flexor Supine Exercise Name Flexor stretch - leg off table Side bilateral Reps/Minutes 2x20 sec each Comments cues PPT resolves R hip pain; vc painfree range. Sitting Exercises HS stretch Sitting Exercise Name (HEP) Side bilateral Equipment Used standard mesh chair Reps/Minutes 3 x30 ea Standing Exercises HS curls Side bilateral Reps/Minutes x12 ea Comments R HS discomfort resolves w/ stretch and cues for smaller range HS stretch Side bilateral Equipment Used hand rail Comments cues for trunk to floor Hip Flexor Stretch Standing Exercise Name Hip Flexor Stretch at wall Side bilateral Comments cues tuck hips under Other Exercises Step-ups Other Exercise Name Step-ups (RLE leading) Side bilateral Equipment Used 6 step, handrail for balance Comments vc slower pacing, heels apart Resisted Ambulation Other Exercise Name Resisted side-stepping Side bilateral Resistance Lv 2 Equipment Used mat table prn Reps/Minutes 8 ft x2 ea Manual Therapy Treatment Consent Patient gave verbal consent for manual Yes treatment Soft Tissue Mobilization R hip Body Location quads, hamstrings Mobilization Type Rolling,Strumming,Sustained Pressure Intensity/Depth Superficial>Moderate Body Position Supine, Hooklying Comments proximal focus of quads and HS . positive feedback response PT-OP-R Modalities Start: 09/28/24 12:37 Freq: Status: Active Protocol: Document 09/28/24 11:39 NBM (Rec: 09/28/24 12:38 NBM [id number]) Hot Pack/Cold Pack Treatment Cold Pack Location L knee, lumbar anterior, cervical posterior Patient Position Hooklying Patient Tolerance Good Comments 8' PT-OP-T Assessment and Plan Start: 09/20/24 13:50 Freq: Status: Active Protocol: Document 10/01/24 11:41 NBM (Rec: 10/01/24 12:37 NB [id number]) Physical Therapy Assessment Goals Three Impairment Pt displays general lower extremity weakness bilaterally Half-Way Goal (LTG) Pt to demonstrate MMT of 4/5 or better in all tests hip planes bilaterally in order to demonstrate improved lower extremity strength and improved functional mobility. LTG Duration 11/18/24 Two Impairment Pt notes pain inturrupts sleep most nights Metalizing Machine Operator Goal (LTG) Pt to report pain does not wake her up for at least 5 days over the course of a week . LTG Duration 11/18/24 One Impairment Pt does not have an appropriate home exercise program Short Term Goal (STG) Pt to be compliant with independent with an appropriate HEP STG Duration 10/21/24 Assessment Summary Assessment Leah has cramping in R hamstring with standing hamstring curls which resolve with cues for smaller ranger and emphasis on painfree range . Cues for posterior pelvic tilt resolves R hip lateral pain with hip flexor stretch in Ryan position. Palpable tension to R hip flexors and proximal hamstring muscles improves with STM and pt reports positive feedback response. She demonstrates improved self-awareness of neutral foot positioning with resisted sidesteps and tolerates increased repetitions of bilateral and unilateral squats on supine leg press. She feels much better end of session and declines ice today due to no pain in knee. Physical Therapy Plan Frequency and Duration Frequency of Treatment 2x/Week Plan of Care Start Date 09/20/24 Plan of Care End Date 11/18/24 Therapeutic Interventions Therapeutic Interventions Home Exercise Program,Joint Mobilizations,Manual Therapy, Neuromuscular Re-education, Patient/Caregiver Education, Self-Care/Home Management,Soft Tissue Mobilization, Therapeutic Activities, Therapeutic Exercises Modalities Cold Pack/Ice Massage,Hot Packs Next Visit Focus/Plan Next Note Type Treatment Note Next Visit Plan Assess response to last treatment. Trial recumbent bike w/u. Consider adding HS curls (painfree range), calf stretch on step, and self-STM rolling pin to HEP. LE strengthening, stretching, STM as tolerated
--- NOTE | 2024-10-06 17:04 | PT.OTN ---
Physical Therapy Treatment Note PT-OP-A Visit Information Start: 09/20/24 13:50 Freq: Status: Active Protocol: Document 10/06/24 13:08 NBM (Rec: 10/06/24 13:56 NBM [id number]) Out-Patient Physical Therapy Visit Information Visit Information Visit Type Treatment Note Visit Start Time 13:06 Visit Stop Time 13:52 Visit Number 5 Number of WINDOW UNIT AIR CONDITIONING MECHANIC Visits 3 Evaluation Information Evaluation Date 09/20/24 PT-OP-B Current Condition Start: 09/20/24 13:50 Freq: Status: Active Protocol: Document 09/20/24 12:15 DCW (Rec: 09/20/24 14:16 DCW [id number]) Current Condition History of Current Condition Onset Date 3-4 month history Current Complaints Left hip, groin, leg pain History of Current Condition Pt is a 69 year old female presenting with a 3-4 month history of L>E LE pain, spasm, and weakness. Pt notes pain seems like it begins at her left groin, and travels down the inside of her thigh to her medial knee. Occasionally happens less severely on the right side, but mainly the left. Notes two or three times , she has had spasms in her leg that drop me to the floor . Does try to stay active, walks with a walking group a couple times a week, and does a weekly [employer] class. A few days after a PCP appointment last month, she was sent ot the ED due to findings in her blood work made them concerned about her kidneys. Follow-up bloodwork was largely WNL, but while in the ED, she received pelvis/abdominal CT scan, which was unremarkable. Hip x- rays show moderate arthritic changes. Notes her pain has been bothering her sleep, typically wakes up after 4-5 hours, and then is unable to get back to sleep. Notes she got a couple stretching exercises from her PCP, but hasn't noticed them making much of a difference. Prior Treatments and Tests Pelvis X-ray: IMPRESSION: Moderate bilateral hip arthritic change. per Rajani Gutierrez M.D. on 08/20/[address]: IMPRESSION: 1. No obstructing stones or hydronephrosis. Nonobstructing stone in lower pole left kidney. Left peripelvic renal cysts. No hydroureter. Normal appearing urinary bladder. 2. Normal appendix. No bowel obstruction or abnormal bowel wall thickening. Mild constipation. Sigmoid diverticulosis without CT evidence of acute diverticulitis. per Arthur Morejon M.D. on 08/24/2024 Treatment Goals Patient/Caregiver Goals Uninturrupted sleep, get back to usual participation in exercise. PT-OP-C Subjective Start: 09/20/24 13:50 Freq: Status: Active Protocol: Document 10/06/24 13:08 NBM (Rec: 10/06/24 13:56 NBM [id number]) OP-PT Subjective Patient Comments Patient Comments Leah reports she's not doing well today because she received news that her best friend has life-threatening cancer. She's still getting pain in her hips. PT-OP-F Manual Assessment Start: 09/20/24 13:50 Freq: Status: Active Protocol: Document 09/20/24 12:15 DCW (Rec: 09/20/24 14:16 DCW [id number]) Manual Assessments Soft Tissue Assessment Soft Tissue Mobility Assessment Tenderness to palpation along entirety of bilateral lower extremities 3/4: Wincing and withdraw. Pt incredibly sensitive to all palpation, during special testing, most discomfort was not caused pt the positioning or motion, but the light pressure against her soft tissue. PT-OP-L Special Tests Start: 09/20/24 13:50 Freq: Status: Active Protocol: Document 09/20/24 12:15 DCW (Rec: 09/20/24 14:16 DCW [id number]) Special Tests Lumbar Spine Special Tests ALICIA Test Results Negative Straight Leg Raise Test Results Negative Slump Test Results Negative Manual Traction Test Results Negative Compression Test Results Negative A-P Shearing Test Results Negative Hip Special Tests Scour Test Test Results Negative Piriformis Test Results Negative PT-OP-M Strength Start: 09/20/24 13:50 Freq: Status: Active Protocol: Document 09/20/24 12:15 DCW (Rec: 09/20/24 14:16 DCW [id number]) Hip Strength Hip Manual Muscle Testing Right Flexion (L2) 3+ Fair+ Abduction 4- Good- Adduction 4- Good- External Rotation 4- Good- Internal Rotation 4 Good Left Flexion (L2) 3+ Fair+ Abduction 4- Good- Adduction 4- Good- External Rotation 4- Good- Internal Rotation 4 Good Knee Strength Knee Manual Muscle Testing Right Flexion (S2) 4- Good- Extension (L3) 4- Good- Left Flexion (S2) 4- Good- Extension (L3) 4- Good- PT-OP-Q Treatments Start: 09/20/24 13:50 Freq: Status: Active Protocol: Document 10/06/24 13:08 NBM (Rec: 10/06/24 13:56 NBM [id number]) Gym Equipment Shuttle Recovery Heel raise Details Criss Resistance 50#>37# (one teal, one navy) Shuttle Recovery Platform Stable Reps/Time 50#x5, 37#x15 calf stretch Details criss Resistance 37# (one teal) Shuttle Recovery Platform Stable Reps/Time heels off platform, 1' hold Unilateral Squats Details Criss Resistance 50# Shuttle Recovery Platform Stable Reps/Time Lx7 ea, Rx9 (fatigued) Bilateral Squats Resistance 75# (one teal, two navy) Shuttle Recovery Platform Stable Reps/Time x15 (fatigued), vc LE alignment Therapeutic Exercises Supine Exercises Hamstring Stretch Supine Exercise Name Hamstring Stretch Side bilateral Equipment Used on Shuttle Recovery 37# Reps/Minutes 60 ea Comments positive feedback response Standing Exercises HS curls Standing Exercise Name added to HEP Side bilateral Reps/Minutes x15 ea Comments no cramping, pain free range improves Other Exercises 1/2 kneel Other Exercise Name hip flexor stretch: lunge position Side bilateral Equipment Used yoga mat Reps/Minutes 2x30 ea Comments cues for balance prn, painfree range Manual Therapy Treatment Consent Patient gave verbal consent for manual Yes treatment Soft Tissue Mobilization L hip Body Location L adductors Mobilization Type Rolling,Strumming,Other Intensity/Depth superficial>moderate Body Position Supine, Hooklying Comments positive feedback response IASTM w/ rolling pin Manual Techniques self-STM Type w/ rolling pin Body Location L adductors, quads, ITB, hamstrings, calf Body Position Sitting Reps/Duration 4' Comments pt i/s in self-STM using rolling pin to LLE Self-Care/Home Management Treatment Education Patient Education Home Exercise Program,Pain Management Other Education Added to HEP: HS curls (R in smaller ROM to avoid HS cramping), calf stretch on step, self-STM to LEs w/ rolling pin - HO given. PT-OP-R Modalities Start: 09/28/24 12:37 Freq: Status: Active Protocol: Document 09/28/24 11:39 NB (Rec: 09/28/24 12:38 [facility] [id number]) Hot Pack/Cold Pack Treatment Cold Pack Location L knee, lumbar anterior, cervical posterior Patient Position Hooklying Patient Tolerance Good Comments 8' PT-OP-T Assessment and Plan Start: 09/20/24 13:50 Freq: Status: Active Protocol: Document 10/06/24 13:08 NB (Rec: 10/06/24 13:56 [facility] [id number]) Physical Therapy Assessment Goals Three Impairment Pt displays general lower extremity weakness bilaterally Penitentiary Goal (LTG) Pt to demonstrate MMT of 4/5 or better in all tests hip planes bilaterally in order to demonstrate improved lower extremity strength and improved functional mobility. LTG Duration 11/18/24 Two Impairment Pt notes pain inturrupts sleep most nights Hat Designer Goal (LTG) Pt to report pain does not wake her up for at least 5 days over the course of a week . LTG Duration 11/18/24 One Impairment Pt does not have an appropriate home exercise program Short Term Goal (STG) Pt to be compliant with independent with an appropriate HEP STG Duration 10/21/24 Assessment Summary Assessment Leah presents with increased L adductor pain today. Treatment focus on LE strengthening, stretching, and pain management with STM and instruction for self-STM. Pt demonstrates improving LE strength with bilaterally with increased resistance for both DL and SL squats on Shuttle Recovery, from 62# to 75# and 37# to 50# respectively, thought LLE continues to fatgue faster than RLE. Palpable tension to L adductors improves with gentle STM and pt reports positive feedback response, and is able to tolerate increased pressure to L adductors after ~3 minutes of STM with cues for diaphragmatic breathing. Added to HEP: HS curls, standing calf stretch, rolling pin self-STM - HO given. Physical Therapy Plan Frequency and Duration Frequency of Treatment 2x/Week Plan of Care Start Date 09/20/24 Plan of Care End Date 11/18/24 Therapeutic Interventions Therapeutic Interventions Home Exercise Program,Joint Mobilizations,Manual Therapy, Neuromuscular Re-education, Patient/Caregiver Education, Self-Care/Home Management,Soft Tissue Mobilization, Therapeutic Activities, Therapeutic Exercises Modalities Cold Pack/Ice Massage,Hot Packs Next Visit Focus/Plan Next Note Type Treatment Note Next Visit Plan Next: Trial recumbent bike w/u . Review and progress new HEP prn (HS curls (painfree range) , calf stretch on step, self- STM rolling pin). POC: LE strengthening, stretching, STM as tolerated
--- NOTE | 2024-10-12 17:03 | PT.OTN ---
Current Diagnoses Myalgia, unspecified site (10/12/24) Pain in right leg (10/12/24) Pain in left leg (10/12/24) Strain of adductor muscle, fascia and tendon of unspecified thigh, initial encounter (10/12/24) Strain of adductor muscle, fascia and tendon of unspecified thigh, subsequent encounter (10/12/24) Physical Therapy Treatment Note PT-OP-A Visit Information Start: 09/20/24 13:50 Freq: Status: Active Protocol: Document 10/06/24 13:08 NBM (Rec: 10/06/24 13:56 NBM [id number]) Out-Patient Physical Therapy Visit Information Visit Information Visit Type Treatment Note Visit Start Time 13:06 Visit Stop Time 13:52 Visit Number 5 Number of BEHAVIORAL INSTRUCTOR Visits 3 Evaluation Information Evaluation Date 09/20/24 PT-OP-B Current Condition Start: 09/20/24 13:50 Freq: Status: Active Protocol: Document 09/20/24 12:15 DCW (Rec: 09/20/24 14:16 DCW [id number]) Current Condition History of Current Condition Onset Date 3-4 month history Current Complaints Left hip, groin, leg pain History of Current Condition Pt is a 69 year old female presenting with a 3-4 month history of L>E LE pain, spasm, and weakness. Pt notes pain seems like it begins at her left groin, and travels down the inside of her thigh to her medial knee. Occasionally happens less severely on the right side, but mainly the left. Notes two or three times , she has had spasms in her leg that drop me to the floor . Does try to stay active, walks with a walking group a couple times a week, and does a weekly [employer] class. A few days after a PCP appointment last month, she was sent ot the ED due to findings in her blood work made them concerned about her kidneys. Follow-up bloodwork was largely WNL, but while in the ED, she received pelvis/abdominal CT scan, which was unremarkable. Hip x- rays show moderate arthritic changes. Notes her pain has been bothering her sleep, typically wakes up after 4-5 hours, and then is unable to get back to sleep. Notes she got a couple stretching exercises from her PCP, but hasn't noticed them making much of a difference. Prior Treatments and Tests Pelvis X-ray: IMPRESSION: Moderate bilateral hip arthritic change. per Rajani Gutierrez M.D. on 08/20/[address]: IMPRESSION: 1. No obstructing stones or hydronephrosis. Nonobstructing stone in lower pole left kidney. Left peripelvic renal cysts. No hydroureter. Normal appearing urinary bladder. 2. Normal appendix. No bowel obstruction or abnormal bowel wall thickening. Mild constipation. Sigmoid diverticulosis without CT evidence of acute diverticulitis. per Arthur Morejon M.D. on 08/24/2024 Treatment Goals Patient/Caregiver Goals Uninturrupted sleep, get back to usual participation in exercise. PT-OP-C Subjective Start: 09/20/24 13:50 Freq: Status: Active Protocol: Document 10/06/24 13:08 NBM (Rec: 10/06/24 13:56 NBM [id number]) OP-PT Subjective Patient Comments Patient Comments Leah reports she's not doing well today because she received news that her best friend has life-threatening cancer. She's still getting pain in her hips. PT-OP-F Manual Assessment Start: 09/20/24 13:50 Freq: Status: Active Protocol: Document 09/20/24 12:15 DCW (Rec: 09/20/24 14:16 DCW [id number]) Manual Assessments Soft Tissue Assessment Soft Tissue Mobility Assessment Tenderness to palpation along entirety of bilateral lower extremities 3/4: Wincing and withdraw. Pt incredibly sensitive to all palpation, during special testing, most discomfort was not caused pt the positioning or motion, but the light pressure against her soft tissue. PT-OP-L Special Tests Start: 09/20/24 13:50 Freq: Status: Active Protocol: Document 09/20/24 12:15 DCW (Rec: 09/20/24 14:16 DCW [id number]) Special Tests Lumbar Spine Special Tests ALICIA Test Results Negative Straight Leg Raise Test Results Negative Slump Test Results Negative Manual Traction Test Results Negative Compression Test Results Negative A-P Shearing Test Results Negative Hip Special Tests Scour Test Test Results Negative Piriformis Test Results Negative PT-OP-M Strength Start: 09/20/24 13:50 Freq: Status: Active Protocol: Document 09/20/24 12:15 DCW (Rec: 09/20/24 14:16 DCW [id number]) Hip Strength Hip Manual Muscle Testing Right Flexion (L2) 3+ Fair+ Abduction 4- Good- Adduction 4- Good- External Rotation 4- Good- Internal Rotation 4 Good Left Flexion (L2) 3+ Fair+ Abduction 4- Good- Adduction 4- Good- External Rotation 4- Good- Internal Rotation 4 Good Knee Strength Knee Manual Muscle Testing Right Flexion (S2) 4- Good- Extension (L3) 4- Good- Left Flexion (S2) 4- Good- Extension (L3) 4- Good- PT-OP-Q Treatments Start: 09/20/24 13:50 Freq: Status: Active Protocol: Document 10/06/24 13:08 [facility] (Rec: 10/06/24 13:56 [facility] [id number]) Gym Equipment Shuttle Recovery Heel raise Details Criss Resistance 50#>37# (one teal, one navy) Shuttle Recovery Platform Stable Reps/Time 50#x5, 37#x15 calf stretch Details criss Resistance 37# (one teal) Shuttle Recovery Platform Stable Reps/Time heels off platform, 1' hold Unilateral Squats Details Criss Resistance 50# Shuttle Recovery Platform Stable Reps/Time Lx7 ea, Rx9 (fatigued) Bilateral Squats Resistance 75# (one teal, two navy) Shuttle Recovery Platform Stable Reps/Time x15 (fatigued), vc LE alignment Therapeutic Exercises Supine Exercises Hamstring Stretch Supine Exercise Name Hamstring Stretch Side bilateral Equipment Used on Shuttle Recovery 37# Reps/Minutes 60 ea Comments positive feedback response Standing Exercises HS curls Standing Exercise Name added to HEP Side bilateral Reps/Minutes x15 ea Comments no cramping, pain free range improves Other Exercises 1/2 kneel Other Exercise Name hip flexor stretch: lunge position Side bilateral Equipment Used yoga mat Reps/Minutes 2x30 ea Comments cues for balance prn, painfree range Manual Therapy Treatment Consent Patient gave verbal consent for manual Yes treatment Soft Tissue Mobilization L hip Body Location L adductors Mobilization Type Rolling,Strumming,Other Intensity/Depth superficial>moderate Body Position Supine, Hooklying Comments positive feedback response IASTM w/ rolling pin Manual Techniques self-STM Type w/ rolling pin Body Location L adductors, quads, ITB, hamstrings, calf Body Position Sitting Reps/Duration 4' Comments pt i/s in self-STM using rolling pin to LLE Self-Care/Home Management Treatment Education Patient Education Home Exercise Program,Pain Management Other Education Added to HEP: HS curls (R in smaller ROM to avoid HS cramping), calf stretch on step, self-STM to LEs w/ rolling pin - HO given. PT-OP-R Modalities Start: 09/28/24 12:37 Freq: Status: Active Protocol: Document 09/28/24 11:39 NBM (Rec: 09/28/24 12:38 NBM [id number]) Hot Pack/Cold Pack Treatment Cold Pack Location L knee, lumbar anterior, cervical posterior Patient Position Hooklying Patient Tolerance Good Comments 8' PT-OP-T Assessment and Plan Start: 09/20/24 13:50 Freq: Status: Active Protocol: Document 10/06/24 13:08 NBM (Rec: 10/06/24 13:56 NB [id number]) Physical Therapy Assessment Goals Three Impairment Pt displays general lower extremity weakness bilaterally Programming Director Goal (LTG) Pt to demonstrate MMT of 4/5 or better in all tests hip planes bilaterally in order to demonstrate improved lower extremity strength and improved functional mobility. LTG Duration 11/18/24 Two Impairment Pt notes pain inturrupts sleep most nights Programming Director Goal (LTG) Pt to report pain does not wake her up for at least 5 days over the course of a week . LTG Duration 11/18/24 One Impairment Pt does not have an appropriate home exercise program Short Term Goal (STG) Pt to be compliant with independent with an appropriate HEP STG Duration 10/21/24 Assessment Summary Assessment Leah presents with increased L adductor pain today. Treatment focus on LE strengthening, stretching, and pain management with STM and instruction for self-STM. Pt demonstrates improving LE strength with bilaterally with increased resistance for both DL and SL squats on Shuttle Recovery, from 62# to 75# and 37# to 50# respectively, thought LLE continues to fatgue faster than RLE. Palpable tension to L adductors improves with gentle STM and pt reports positive feedback response, and is able to tolerate increased pressure to L adductors after ~3 minutes of STM with cues for diaphragmatic breathing. Added to HEP: HS curls, standing calf stretch, rolling pin self-STM - HO given. Physical Therapy Plan Frequency and Duration Frequency of Treatment 2x/Week Plan of Care Start Date 09/20/24 Plan of Care End Date 11/18/24 Therapeutic Interventions Therapeutic Interventions Home Exercise Program,Joint Mobilizations,Manual Therapy, Neuromuscular Re-education, Patient/Caregiver Education, Self-Care/Home Management,Soft Tissue Mobilization, Therapeutic Activities, Therapeutic Exercises Modalities Cold Pack/Ice Massage,Hot Packs Next Visit Focus/Plan Next Note Type Treatment Note Next Visit Plan Next: Trial recumbent bike w/u . Review and progress new HEP prn (HS curls (painfree range) , calf stretch on step, self- STM rolling pin). POC: LE strengthening, stretching, STM as tolerated
--- NOTE | 2024-10-12 17:25 | PT.OTN ---
Current Diagnoses Myalgia, unspecified site (10/12/24) Pain in right leg (10/12/24) Pain in left leg (10/12/24) Strain of adductor muscle, fascia and tendon of unspecified thigh, initial encounter (10/12/24) Strain of adductor muscle, fascia and tendon of unspecified thigh, subsequent encounter (10/12/24) Physical Therapy Treatment Note PT-OP-A Visit Information Start: 09/20/24 13:50 Freq: Status: Active Protocol: Document 10/12/24 17:05 NBM (Rec: 10/12/24 17:24 NBM [id number]) Out-Patient Physical Therapy Visit Information Visit Information Visit Type Treatment Note Visit Start Time 15:28 Visit Stop Time 16:08 Visit Number 6 Number of HERBARIUM WORKER Visits 4 Evaluation Information Evaluation Date 09/20/24 PT-OP-B Current Condition Start: 09/20/24 13:50 Freq: Status: Active Protocol: Document 09/20/24 12:15 DCW (Rec: 09/20/24 14:16 DCW [id number]) Current Condition History of Current Condition Onset Date 3-4 month history Current Complaints Left hip, groin, leg pain History of Current Condition Pt is a 69 year old female presenting with a 3-4 month history of L>E LE pain, spasm, and weakness. Pt notes pain seems like it begins at her left groin, and travels down the inside of her thigh to her medial knee. Occasionally happens less severely on the right side, but mainly the left. Notes two or three times , she has had spasms in her leg that drop me to the floor . Does try to stay active, walks with a walking group a couple times a week, and does a weekly [employer] class. A few days after a PCP appointment last month, she was sent ot the ED due to findings in her blood work made them concerned about her kidneys. Follow-up bloodwork was largely WNL, but while in the ED, she received pelvis/abdominal CT scan, which was unremarkable. Hip x- rays show moderate arthritic changes. Notes her pain has been bothering her sleep, typically wakes up after 4-5 hours, and then is unable to get back to sleep. Notes she got a couple stretching exercises from her PCP, but hasn't noticed them making much of a difference. Prior Treatments and Tests Pelvis X-ray: IMPRESSION: Moderate bilateral hip arthritic change. per Rajani Gutierrez M.D. on 08/20/[address]: IMPRESSION: 1. No obstructing stones or hydronephrosis. Nonobstructing stone in lower pole left kidney. Left peripelvic renal cysts. No hydroureter. Normal appearing urinary bladder. 2. Normal appendix. No bowel obstruction or abnormal bowel wall thickening. Mild constipation. Sigmoid diverticulosis without CT evidence of acute diverticulitis. per Arthur Morejon M.D. on 08/24/2024 Treatment Goals Patient/Caregiver Goals Uninturrupted sleep, get back to usual participation in exercise. PT-OP-C Subjective Start: 09/20/24 13:50 Freq: Status: Active Protocol: Document 10/12/24 17:05 NBM (Rec: 10/12/24 17:24 NBM [id number]) OP-PT Subjective Patient Comments Patient Comments Leah reports L groin pain / 10 today. She is not sleeping well in general possibly due to stress but did finally get 7 hours of sleep last night. She's doing her ex's and R hamstrings sometimes cramp but gets better if she keeps going. PT-OP-F Manual Assessment Start: 09/20/24 13:50 Freq: Status: Active Protocol: Document 09/20/24 12:15 DCW (Rec: 09/20/24 14:16 DCW [id number]) Manual Assessments Soft Tissue Assessment Soft Tissue Mobility Assessment Tenderness to palpation along entirety of bilateral lower extremities 3/4: Wincing and withdraw. Pt incredibly sensitive to all palpation, during special testing, most discomfort was not caused pt the positioning or motion, but the light pressure against her soft tissue. PT-OP-L Special Tests Start: 09/20/24 13:50 Freq: Status: Active Protocol: Document 09/20/24 12:15 DCW (Rec: 09/20/24 14:16 DCW [id number]) Special Tests Lumbar Spine Special Tests ALICIA Test Results Negative Straight Leg Raise Test Results Negative Slump Test Results Negative Manual Traction Test Results Negative Compression Test Results Negative A-P Shearing Test Results Negative Hip Special Tests Scour Test Test Results Negative Piriformis Test Results Negative PT-OP-M Strength Start: 09/20/24 13:50 Freq: Status: Active Protocol: Document 09/20/24 12:15 DCW (Rec: 09/20/24 14:16 DCW [id number]) Hip Strength Hip Manual Muscle Testing Right Flexion (L2) 3+ Fair+ Abduction 4- Good- Adduction 4- Good- External Rotation 4- Good- Internal Rotation 4 Good Left Flexion (L2) 3+ Fair+ Abduction 4- Good- Adduction 4- Good- External Rotation 4- Good- Internal Rotation 4 Good Knee Strength Knee Manual Muscle Testing Right Flexion (S2) 4- Good- Extension (L3) 4- Good- Left Flexion (S2) 4- Good- Extension (L3) 4- Good- PT-OP-Q Treatments Start: 09/20/24 13:50 Freq: Status: Active Protocol: Document 10/12/24 17:05 NBM (Rec: 10/12/24 17:24 NBM [id number]) Therapeutic Exercises Sitting Exercises Diaphragmatic Breathing Sitting Exercise Name arms outstretched w/ deep breaths>self-hug>rocking> Thank you, body mantra Reps/Minutes 5' Comments for pain dampening via Parasympathetic NS; after I feel relaxed now. Manual Therapy Treatment Consent Patient gave verbal consent for manual Yes treatment Soft Tissue Mobilization L hip Body Location L adductors and hamstrings, L QL, B lumbar paraspinals Mobilization Type Cross-Friction,Rolling, Strumming,Sustained Pressure Intensity/Depth superficial>moderate Body Position Supine, Hooklying Comments Circular strokes distal to proximal insertions. w/ breathwork Focus on gracilis, semimembranosus and semitendinosus. Pin and stretch to L QL. Manual Techniques self-STM Type w/ rolling pin - verbal review Body Location L adductors, quads, ITB, hamstrings, calf Body Position Sitting Reps/Duration 4' Comments pt i/s in self-STM using rolling pin to LLE PT-OP-R Modalities Start: 09/28/24 12:37 Freq: Status: Active Protocol: Document 09/28/24 11:39 NBM (Rec: 09/28/24 12:38 NBM [id number]) Hot Pack/Cold Pack Treatment Cold Pack Location L knee, lumbar anterior, cervical posterior Patient Position Hooklying Patient Tolerance Good Comments 8' PT-OP-T Assessment and Plan Start: 09/20/24 13:50 Freq: Status: Active Protocol: Document 10/12/24 17:05 [facility] (Rec: 10/12/24 17:24 [facility] [id number]) Physical Therapy Assessment Goals Three Impairment Pt displays general lower extremity weakness bilaterally Branch Employment Coordinator Goal (LTG) Pt to demonstrate MMT of 4/5 or better in all tests hip planes bilaterally in order to demonstrate improved lower extremity strength and improved functional mobility. LTG Duration 11/18/24 Two Impairment Pt notes pain inturrupts sleep most nights Branch Employment Coordinator Goal (LTG) Pt to report pain does not wake her up for at least 5 days over the course of a week . LTG Duration 11/18/24 One Impairment Pt does not have an appropriate home exercise program Short Term Goal (STG) Pt to be compliant with independent with an appropriate HEP STG Duration 10/21/24 Assessment Summary Assessment Leah presents with 6/10 L adductor pain start of session which improves to 3/10 end of session. Treatment focus on soft tissue mobilization to length of L adductors and Hamstrings with emphasis on Semimembranosus, Semitendinosus, and Gracilis muscles. Superficial intensity to start but pt is able to tolerate moderate intentisity after ~ 3 minutes STM to each muscle w/ cues for deep breathing. She is also instructed in diaphragmatic breathing in sitting for pain dampening. Per conversation with evaluating PT pt may benefit from core strengthening as well. Physical Therapy Plan Frequency and Duration Frequency of Treatment 2x/Week Plan of Care Start Date 09/20/24 Plan of Care End Date 11/18/24 Therapeutic Interventions Therapeutic Interventions Home Exercise Program,Joint Mobilizations,Manual Therapy, Neuromuscular Re-education, Patient/Caregiver Education, Self-Care/Home Management,Soft Tissue Mobilization, Therapeutic Activities, Therapeutic Exercises Modalities Cold Pack/Ice Massage,Hot Packs Next Visit Focus/Plan Next Note Type Treatment Note Next Visit Plan Next: Consider adding core strengthening. Trial recumbent bike w/u. Review and progress new HEP prn (HS curls ( painfree range), calf stretch on step, self-STM rolling pin) . POC: LE strengthening, stretching, STM as tolerated
--- NOTE | 2024-10-15 15:17 | PT.OTN ---
Current Diagnoses Myalgia, unspecified site (10/15/24) Pain in right leg (10/15/24) Pain in left leg (10/15/24) Strain of adductor muscle, fascia and tendon of unspecified thigh, initial encounter (10/15/24) Strain of adductor muscle, fascia and tendon of unspecified thigh, subsequent encounter (10/15/24) Physical Therapy Treatment Note PT-OP-A Visit Information Start: 09/20/24 13:50 Freq: Status: Active Protocol: Document 10/15/24 14:30 DCW (Rec: 10/15/24 15:17 DCW [id number]) Out-Patient Physical Therapy Visit Information Visit Information Visit Type Treatment Note Visit Start Time 14:30 Visit Stop Time 15:15 Visit Number 7 Number of ELECTRONIC INTELLIGENCE OFFICER Visits 0 Evaluation Information Evaluation Date 09/20/24 PT-OP-B Current Condition Start: 09/20/24 13:50 Freq: Status: Active Protocol: Document 09/20/24 12:15 DCW (Rec: 09/20/24 14:16 DCW [id number]) Current Condition History of Current Condition Onset Date 3-4 month history Current Complaints Left hip, groin, leg pain History of Current Condition Pt is a 69 year old female presenting with a 3-4 month history of L>E LE pain, spasm, and weakness. Pt notes pain seems like it begins at her left groin, and travels down the inside of her thigh to her medial knee. Occasionally happens less severely on the right side, but mainly the left. Notes two or three times , she has had spasms in her leg that drop me to the floor . Does try to stay active, walks with a walking group a couple times a week, and does a weekly [employer] class. A few days after a PCP appointment last month, she was sent ot the ED due to findings in her blood work made them concerned about her kidneys. Follow-up bloodwork was largely WNL, but while in the ED, she received pelvis/abdominal CT scan, which was unremarkable. Hip x- rays show moderate arthritic changes. Notes her pain has been bothering her sleep, typically wakes up after 4-5 hours, and then is unable to get back to sleep. Notes she got a couple stretching exercises from her PCP, but hasn't noticed them making much of a difference. Prior Treatments and Tests Pelvis X-ray: IMPRESSION: Moderate bilateral hip arthritic change. per Rajani Gutierrez M.D. on 08/20/[address]: IMPRESSION: 1. No obstructing stones or hydronephrosis. Nonobstructing stone in lower pole left kidney. Left peripelvic renal cysts. No hydroureter. Normal appearing urinary bladder. 2. Normal appendix. No bowel obstruction or abnormal bowel wall thickening. Mild constipation. Sigmoid diverticulosis without CT evidence of acute diverticulitis. per Arthur Morejon M.D. on 08/24/2024 Treatment Goals Patient/Caregiver Goals Uninturrupted sleep, get back to usual participation in exercise. PT-OP-C Subjective Start: 09/20/24 13:50 Freq: Status: Active Protocol: Document 10/15/24 14:30 DCW (Rec: 10/15/24 15:17 DCW [id number]) OP-PT Subjective Patient Comments Patient Comments Most of me is probably a 3-4/ 10, but this right here (L groin pain) is probably about a 7/10. PT-OP-F Manual Assessment Start: 09/20/24 13:50 Freq: Status: Active Protocol: Document 09/20/24 12:15 DCW (Rec: 09/20/24 14:16 DCW [id number]) Manual Assessments Soft Tissue Assessment Soft Tissue Mobility Assessment Tenderness to palpation along entirety of bilateral lower extremities 3/4: Wincing and withdraw. Pt incredibly sensitive to all palpation, during special testing, most discomfort was not caused pt the positioning or motion, but the light pressure against her soft tissue. PT-OP-L Special Tests Start: 09/20/24 13:50 Freq: Status: Active Protocol: Document 09/20/24 12:15 DCW (Rec: 09/20/24 14:16 DCW [id number]) Special Tests Lumbar Spine Special Tests ALICIA Test Results Negative Straight Leg Raise Test Results Negative Slump Test Results Negative Manual Traction Test Results Negative Compression Test Results Negative A-P Shearing Test Results Negative Hip Special Tests Scour Test Test Results Negative Piriformis Test Results Negative PT-OP-M Strength Start: 09/20/24 13:50 Freq: Status: Active Protocol: Document 09/20/24 12:15 DCW (Rec: 09/20/24 14:16 DCW [id number]) Hip Strength Hip Manual Muscle Testing Right Flexion (L2) 3+ Fair+ Abduction 4- Good- Adduction 4- Good- External Rotation 4- Good- Internal Rotation 4 Good Left Flexion (L2) 3+ Fair+ Abduction 4- Good- Adduction 4- Good- External Rotation 4- Good- Internal Rotation 4 Good Knee Strength Knee Manual Muscle Testing Right Flexion (S2) 4- Good- Extension (L3) 4- Good- Left Flexion (S2) 4- Good- Extension (L3) 4- Good- PT-OP-Q Treatments Start: 09/20/24 13:50 Freq: Status: Active Protocol: Document 10/15/24 14:30 DCW (Rec: 10/15/24 15:17 DCW [id number]) Therapeutic Exercises Supine Exercises SLR Supine Exercise Name PPT /c SLR Comments TrA Bracing Marching Supine Exercise Name PPT /c Marching Comments TrA Bracing PPT Supine Exercise Name PPT /c TrA Bracing Hamstring Stretch Supine Exercise Name Hamstring Stretch Side bilateral Standing Exercises Pallof Press Standing Exercise Name Pallof Press Side bilateral Resistance Green Manual Therapy Treatment Consent Patient gave verbal consent for manual Yes treatment Soft Tissue Mobilization L hip Body Location L adductors and hamstrings, L QL, B lumbar paraspinals Mobilization Type Cross-Friction,Rolling, Strumming,Sustained Pressure Intensity/Depth superficial>moderate Body Position Supine, Hooklying Comments Circular strokes distal to proximal insertions. w/ breathwork Focus on gracilis, semimembranosus and semitendinosus. Pin and stretch to L QL. PT-OP-R Modalities Start: 09/28/24 12:37 Freq: Status: Active Protocol: Document 09/28/24 11:39 NBM (Rec: 09/28/24 12:38 NBM [id number]) Hot Pack/Cold Pack Treatment Cold Pack Location L knee, lumbar anterior, cervical posterior Patient Position Hooklying Patient Tolerance Good Comments 8' PT-OP-T Assessment and Plan Start: 09/20/24 13:50 Freq: Status: Active Protocol: Document 10/15/24 14:30 DCW (Rec: 10/15/24 15:17 DCW [id number]) Physical Therapy Assessment Impairments Impairments Functional Activities, Functional Mobility,Pain,Soft Tissue Mobility,Strength,Tone Goals Three Impairment Pt displays general lower extremity weakness bilaterally Commercial Hvac Service Technician Goal (LTG) Pt to demonstrate MMT of 4/5 or better in all tests hip planes bilaterally in order to demonstrate improved lower extremity strength and improved functional mobility. LTG Duration 11/18/24 Two Impairment Pt notes pain inturrupts sleep most nights Fpc Goal (LTG) Pt to report pain does not wake her up for at least 5 days over the course of a week . LTG Duration 11/18/24 One Impairment Pt does not have an appropriate home exercise program Short Term Goal (STG) Pt to be compliant with independent with an appropriate HEP STG Duration 10/21/24 Assessment Summary Assessment Pt continues to experience largely unchanging pain in her hip, groin, and thigh, left worse than right. Added some core strengthening today, unfortunately HEP program was down for maintenance, so handout was not provided. If pt does not show improvement within the next few visits, may want to refer back to PCP for next step. Physical Therapy Plan Frequency and Duration Frequency of Treatment 2x/Week Plan of Care Start Date 09/20/24 Plan of Care End Date 11/18/24 Therapeutic Interventions Therapeutic Interventions Home Exercise Program,Joint Mobilizations,Manual Therapy, Neuromuscular Re-education, Patient/Caregiver Education, Self-Care/Home Management,Soft Tissue Mobilization, Therapeutic Activities, Therapeutic Exercises Modalities Cold Pack/Ice Massage,Hot Packs Next Visit Focus/Plan Next Note Type Treatment Note Next Visit Plan Next: Consider adding core strengthening. Trial recumbent bike w/u. Review and progress new HEP prn (HS curls ( painfree range), calf stretch on step, self-STM rolling pin) . POC: LE strengthening, stretching, STM as tolerated
--- NOTE | 2024-10-19 15:14 | PT.OTN ---
Current Diagnoses Myalgia, unspecified site (10/19/24) Pain in right leg (10/19/24) Pain in left leg (10/19/24) Strain of adductor muscle, fascia and tendon of unspecified thigh, initial encounter (10/19/24) Strain of adductor muscle, fascia and tendon of unspecified thigh, subsequent encounter (10/19/24) Physical Therapy Treatment Note PT-OP-A Visit Information Start: 09/20/24 13:50 Freq: Status: Active Protocol: Document 10/19/24 14:30 DCW (Rec: 10/19/24 15:14 DCW [id number]) Out-Patient Physical Therapy Visit Information Visit Information Visit Type Treatment Note Visit Start Time 14:30 Visit Stop Time 15:15 Visit Number 8 Number of MECHANICAL ENGINEERING DIRECTOR Visits 0 Evaluation Information Evaluation Date 09/20/24 PT-OP-B Current Condition Start: 09/20/24 13:50 Freq: Status: Active Protocol: Document 09/20/24 12:15 DCW (Rec: 09/20/24 14:16 DCW [id number]) Current Condition History of Current Condition Onset Date 3-4 month history Current Complaints Left hip, groin, leg pain History of Current Condition Pt is a 69 year old female presenting with a 3-4 month history of L>E LE pain, spasm, and weakness. Pt notes pain seems like it begins at her left groin, and travels down the inside of her thigh to her medial knee. Occasionally happens less severely on the right side, but mainly the left. Notes two or three times , she has had spasms in her leg that drop me to the floor . Does try to stay active, walks with a walking group a couple times a week, and does a weekly [employer] class. A few days after a PCP appointment last month, she was sent ot the ED due to findings in her blood work made them concerned about her kidneys. Follow-up bloodwork was largely WNL, but while in the ED, she received pelvis/abdominal CT scan, which was unremarkable. Hip x- rays show moderate arthritic changes. Notes her pain has been bothering her sleep, typically wakes up after 4-5 hours, and then is unable to get back to sleep. Notes she got a couple stretching exercises from her PCP, but hasn't noticed them making much of a difference. Prior Treatments and Tests Pelvis X-ray: IMPRESSION: Moderate bilateral hip arthritic change. per Rajani Gutierrez M.D. on 08/20/[address]: IMPRESSION: 1. No obstructing stones or hydronephrosis. Nonobstructing stone in lower pole left kidney. Left peripelvic renal cysts. No hydroureter. Normal appearing urinary bladder. 2. Normal appendix. No bowel obstruction or abnormal bowel wall thickening. Mild constipation. Sigmoid diverticulosis without CT evidence of acute diverticulitis. per Arthur Morejon M.D. on 08/24/2024 Treatment Goals Patient/Caregiver Goals Uninturrupted sleep, get back to usual participation in exercise. PT-OP-C Subjective Start: 09/20/24 13:50 Freq: Status: Active Protocol: Document 10/19/24 14:30 DCW (Rec: 10/19/24 15:14 DCW [id number]) OP-PT Subjective Patient Comments Patient Comments About the same. Has been able to add core strengthening to HEP, feels it is going well. PT-OP-F Manual Assessment Start: 09/20/24 13:50 Freq: Status: Active Protocol: Document 09/20/24 12:15 DCW (Rec: 09/20/24 14:16 DCW [id number]) Manual Assessments Soft Tissue Assessment Soft Tissue Mobility Assessment Tenderness to palpation along entirety of bilateral lower extremities 3/4: Wincing and withdraw. Pt incredibly sensitive to all palpation, during special testing, most discomfort was not caused pt the positioning or motion, but the light pressure against her soft tissue. PT-OP-L Special Tests Start: 09/20/24 13:50 Freq: Status: Active Protocol: Document 09/20/24 12:15 DCW (Rec: 09/20/24 14:16 DCW [id number]) Special Tests Lumbar Spine Special Tests ALICIA Test Results Negative Straight Leg Raise Test Results Negative Slump Test Results Negative Manual Traction Test Results Negative Compression Test Results Negative A-P Shearing Test Results Negative Hip Special Tests Scour Test Test Results Negative Piriformis Test Results Negative PT-OP-M Strength Start: 09/20/24 13:50 Freq: Status: Active Protocol: Document 09/20/24 12:15 DCW (Rec: 09/20/24 14:16 DCW [id number]) Hip Strength Hip Manual Muscle Testing Right Flexion (L2) 3+ Fair+ Abduction 4- Good- Adduction 4- Good- External Rotation 4- Good- Internal Rotation 4 Good Left Flexion (L2) 3+ Fair+ Abduction 4- Good- Adduction 4- Good- External Rotation 4- Good- Internal Rotation 4 Good Knee Strength Knee Manual Muscle Testing Right Flexion (S2) 4- Good- Extension (L3) 4- Good- Left Flexion (S2) 4- Good- Extension (L3) 4- Good- PT-OP-Q Treatments Start: 09/20/24 13:50 Freq: Status: Active Protocol: Document 10/19/24 14:30 DCW (Rec: 10/19/24 15:14 DCW [id number]) Gym Equipment Shuttle Recovery Unilateral Squats Resistance 37# (one navy) Shuttle Recovery Platform Stable Bilateral Squats Resistance 75# (three navy) Shuttle Recovery Platform Stable Reps/Time x15 (fatigued), vc LE alignment Therapeutic Exercises Supine Exercises ITB Stretch Supine Exercise Name ITB Stretch Side bilateral Equipment Used /c strap Reps/Minutes 30 ea Hamstring Stretch Supine Exercise Name Hamstring Stretch Side bilateral Hip Flexor Supine Exercise Name Flexor stretch - leg off table Side bilateral Reps/Minutes 2x20 sec each Standing Exercises Hip Extension Standing Exercise Name Hip Extension Side bilateral Resistance Lv 2 loop Hip Abduction Standing Exercise Name Hip Abduction Side bilateral Resistance Lv 2 loop Other Exercises BOSU Lunge Other Exercise Name BOSU Lunge Side bilateral Resistance Blue BOSU Step-ups Other Exercise Name Step-ups Side bilateral Equipment Used 6 step, handrail for balance Comments vc slower pacing, heels apart Manual Therapy Treatment Consent Patient gave verbal consent for manual Yes treatment Soft Tissue Mobilization L hip Body Location L adductors, calf, and hamstrings, L QL, B lumbar paraspinals Mobilization Type Cross-Friction,Rolling, Strumming,Sustained Pressure Intensity/Depth superficial>moderate Body Position Supine, Hooklying Comments Circular strokes distal to proximal insertions. w/ breathwork Focus on gracilis, semimembranosus and semitendinosus. Pin and stretch to L QL. PT-OP-R Modalities Start: 09/28/24 12:37 Freq: Status: Active Protocol: Document 09/28/24 11:39 NBM (Rec: 09/28/24 12:38 NBM [id number]) Hot Pack/Cold Pack Treatment Cold Pack Location L knee, lumbar anterior, cervical posterior Patient Position Hooklying Patient Tolerance Good Comments 8' PT-OP-T Assessment and Plan Start: 09/20/24 13:50 Freq: Status: Active Protocol: Document 10/19/24 14:30 DCW (Rec: 10/19/24 15:14 DCW [id number]) Physical Therapy Assessment Assessment Summary Assessment Pt complaints largely unchanged. Doing well with new core exercises. Continue focus on hip and core strength /mobility. 10th visit prog note next visit. May do well with follow-up to PCP. Physical Therapy Plan Frequency and Duration Frequency of Treatment 2x/Week Plan of Care Start Date 09/20/24 Plan of Care End Date 11/18/24 Therapeutic Interventions Therapeutic Interventions Home Exercise Program,Joint Mobilizations,Manual Therapy, Neuromuscular Re-education, Patient/Caregiver Education, Self-Care/Home Management,Soft Tissue Mobilization, Therapeutic Activities, Therapeutic Exercises Modalities Cold Pack/Ice Massage,Hot Packs Next Visit Focus/Plan Next Note Type Progress Note Next Visit Plan Next:Trial recumbent bike w/u. Review and progress new HEP prn (HS curls (painfree range) , calf stretch on step, self- STM rolling pin). POC: LE strengthening, stretching, STM as tolerated
--- NOTE | 2024-10-22 15:11 | PT.OTN ---
Current Diagnoses Myalgia, unspecified site (10/22/24) Pain in right leg (10/22/24) Pain in left leg (10/22/24) Strain of adductor muscle, fascia and tendon of unspecified thigh, initial encounter (10/22/24) Strain of adductor muscle, fascia and tendon of unspecified thigh, subsequent encounter (10/22/24) Physical Therapy Treatment Note PT-OP-A Visit Information Start: 09/20/24 13:50 Freq: Status: Active Protocol: Document 10/22/24 14:30 DCW (Rec: 10/22/24 15:10 DCW [id number]) Out-Patient Physical Therapy Visit Information Visit Information Visit Type Progress Note Visit Start Time 14:30 Visit Stop Time 15:15 Visit Number 9 Number of GAS SHOVEL OPERATOR Visits 0 Evaluation Information Evaluation Date 09/20/24 PT-OP-B Current Condition Start: 09/20/24 13:50 Freq: Status: Active Protocol: Document 09/20/24 12:15 DCW (Rec: 09/20/24 14:16 DCW [id number]) Current Condition History of Current Condition Onset Date 3-4 month history Current Complaints Left hip, groin, leg pain History of Current Condition Pt is a 69 year old female presenting with a 3-4 month history of L>E LE pain, spasm, and weakness. Pt notes pain seems like it begins at her left groin, and travels down the inside of her thigh to her medial knee. Occasionally happens less severely on the right side, but mainly the left. Notes two or three times , she has had spasms in her leg that drop me to the floor . Does try to stay active, walks with a walking group a couple times a week, and does a weekly [employer] class. A few days after a PCP appointment last month, she was sent ot the ED due to findings in her blood work made them concerned about her kidneys. Follow-up bloodwork was largely WNL, but while in the ED, she received pelvis/abdominal CT scan, which was unremarkable. Hip x- rays show moderate arthritic changes. Notes her pain has been bothering her sleep, typically wakes up after 4-5 hours, and then is unable to get back to sleep. Notes she got a couple stretching exercises from her PCP, but hasn't noticed them making much of a difference. Prior Treatments and Tests Pelvis X-ray: IMPRESSION: Moderate bilateral hip arthritic change. per Rajani Gutierrez M.D. on 08/20/[address]: IMPRESSION: 1. No obstructing stones or hydronephrosis. Nonobstructing stone in lower pole left kidney. Left peripelvic renal cysts. No hydroureter. Normal appearing urinary bladder. 2. Normal appendix. No bowel obstruction or abnormal bowel wall thickening. Mild constipation. Sigmoid diverticulosis without CT evidence of acute diverticulitis. per Arthur Morejon M.D. on 08/24/2024 Treatment Goals Patient/Caregiver Goals Uninturrupted sleep, get back to usual participation in exercise. PT-OP-C Subjective Start: 09/20/24 13:50 Freq: Status: Active Protocol: Document 10/22/24 14:30 DCW (Rec: 10/22/24 15:10 DCW [id number]) OP-PT Subjective Patient Comments Patient Comments About the same. Does note she has been having more pain in her calf. PT-OP-F Manual Assessment Start: 09/20/24 13:50 Freq: Status: Active Protocol: Document 09/20/24 12:15 DCW (Rec: 09/20/24 14:16 DCW [id number]) Manual Assessments Soft Tissue Assessment Soft Tissue Mobility Assessment Tenderness to palpation along entirety of bilateral lower extremities 3/4: Wincing and withdraw. Pt incredibly sensitive to all palpation, during special testing, most discomfort was not caused pt the positioning or motion, but the light pressure against her soft tissue. PT-OP-L Special Tests Start: 09/20/24 13:50 Freq: Status: Active Protocol: Document 09/20/24 12:15 DCW (Rec: 09/20/24 14:16 DCW [id number]) Special Tests Lumbar Spine Special Tests ALICIA Test Results Negative Straight Leg Raise Test Results Negative Slump Test Results Negative Manual Traction Test Results Negative Compression Test Results Negative A-P Shearing Test Results Negative Hip Special Tests Scour Test Test Results Negative Piriformis Test Results Negative PT-OP-M Strength Start: 09/20/24 13:50 Freq: Status: Active Protocol: Document 09/20/24 12:15 DCW (Rec: 09/20/24 14:16 DCW [id number]) Hip Strength Hip Manual Muscle Testing Right Flexion (L2) 3+ Fair+ Abduction 4- Good- Adduction 4- Good- External Rotation 4- Good- Internal Rotation 4 Good Left Flexion (L2) 3+ Fair+ Abduction 4- Good- Adduction 4- Good- External Rotation 4- Good- Internal Rotation 4 Good Knee Strength Knee Manual Muscle Testing Right Flexion (S2) 4- Good- Extension (L3) 4- Good- Left Flexion (S2) 4- Good- Extension (L3) 4- Good- PT-OP-Q Treatments Start: 09/20/24 13:50 Freq: Status: Active Protocol: Document 10/22/24 14:30 DCW (Rec: 10/22/24 15:10 DCW [id number]) Gym Equipment Shuttle Recovery Unilateral Squats Resistance 37#->25# (one navy) Shuttle Recovery Platform Stable Bilateral Squats Resistance 75# (three navy) Shuttle Recovery Platform Stable Reps/Time x10 (fatigued) Therapeutic Ball Pelvic Tilts Exercise Details Pelvic Circles/Tilts Ball Size/Color Green - 65 cm Body Position Sitting Therapeutic Exercises Supine Exercises ITB Stretch Supine Exercise Name ITB Stretch Side bilateral Hamstring Stretch Supine Exercise Name Hamstring Stretch Side bilateral Standing Exercises Hip Abduction Standing Exercise Name Hip Abduction Side bilateral Resistance Lv 2 loop Other Exercises BOSU Lunge Other Exercise Name BOSU Lunge Side bilateral Resistance Blue BOSU Step-ups Other Exercise Name Step-ups Side bilateral Equipment Used 6 step, handrail for balance Comments vc slower pacing Manual Therapy Treatment Consent Patient gave verbal consent for manual Yes treatment Soft Tissue Mobilization L hip Body Location L adductors, calf, and hamstrings, L QL, B lumbar paraspinals Mobilization Type Cross-Friction,Rolling, Strumming,Sustained Pressure Intensity/Depth superficial>moderate Body Position Supine, Hooklying Comments Circular strokes distal to proximal insertions. w/ breathwork Focus on gracilis, semimembranosus and semitendinosus. Pin and stretch to L QL. PT-OP-R Modalities Start: 09/28/24 12:37 Freq: Status: Active Protocol: Document 09/28/24 11:39 NBM (Rec: 09/28/24 12:38 NBM [id number]) Hot Pack/Cold Pack Treatment Cold Pack Location L knee, lumbar anterior, cervical posterior Patient Position Hooklying Patient Tolerance Good Comments 8' PT-OP-T Assessment and Plan Start: 09/20/24 13:50 Freq: Status: Active Protocol: Document 10/22/24 14:30 DCW (Rec: 10/22/24 15:10 DCW [id number]) Physical Therapy Assessment Impairments Impairments Functional Activities, Functional Mobility,Pain,Soft Tissue Mobility,Strength,Tone Goals Three Impairment Pt displays general lower extremity weakness bilaterally Restaurant Recruiter Goal (LTG) Pt to demonstrate MMT of 4/5 or better in all tests hip planes bilaterally in order to demonstrate improved lower extremity strength and improved functional mobility. LTG Duration 11/18/24 Two Impairment Pt notes pain inturrupts sleep most nights Prison Goal (LTG) Pt to report pain does not wake her up for at least 5 days over the course of a week . LTG Duration 11/18/24 One Impairment Pt does not have an appropriate home exercise program Short Term Goal (STG) Pt to be compliant with independent with an appropriate HEP STG Duration 10/21/24 Assessment Summary Assessment Pt continues to experience very limited changes, however now noting some increased peripheralization of pain, including occasional calf and foot pain. Discussed with pt, recommend follow-up with PCP at this time. Pt notes has scheduled appt in ~1 month. May benefit from continued treatment between now and thne , will attempt to work toward centralization of pain. Physical Therapy Plan Frequency and Duration Frequency of Treatment 2x/Week Plan of Care Start Date 09/20/24 Plan of Care End Date 11/18/24 Therapeutic Interventions Therapeutic Interventions Home Exercise Program,Joint Mobilizations,Manual Therapy, Neuromuscular Re-education, Patient/Caregiver Education, Self-Care/Home Management,Soft Tissue Mobilization, Therapeutic Activities, Therapeutic Exercises Modalities Cold Pack/Ice Massage,Hot Packs Next Visit Focus/Plan Next Note Type Treatment Note Next Visit Plan Next:Trial recumbent bike w/u. Review and progress new HEP prn (HS curls (painfree range) , calf stretch on step, self- STM rolling pin). POC: LE strengthening, stretching, STM as tolerated
--- NOTE | 2024-10-26 17:15 | PT.OTN ---
Current Diagnoses Myalgia, unspecified site (10/26/24) Pain in right leg (10/26/24) Pain in left leg (10/26/24) Strain of adductor muscle, fascia and tendon of unspecified thigh, initial encounter (10/26/24) Strain of adductor muscle, fascia and tendon of unspecified thigh, subsequent encounter (10/26/24) Physical Therapy Treatment Note PT-OP-A Visit Information Start: 09/20/24 13:50 Freq: Status: Active Protocol: Document 10/26/24 14:44 NBM (Rec: 10/26/24 15:24 NBM [id number]) Out-Patient Physical Therapy Visit Information Visit Information Visit Type Progress Note Visit Start Time 14:41 Visit Stop Time 15:20 Visit Number 10 Number of FUSION OPERATOR Visits 1 Evaluation Information Evaluation Date 09/20/24 PT-OP-B Current Condition Start: 09/20/24 13:50 Freq: Status: Active Protocol: Document 09/20/24 12:15 DCW (Rec: 09/20/24 14:16 DCW [id number]) Current Condition History of Current Condition Onset Date 3-4 month history Current Complaints Left hip, groin, leg pain History of Current Condition Pt is a 69 year old female presenting with a 3-4 month history of L>E LE pain, spasm, and weakness. Pt notes pain seems like it begins at her left groin, and travels down the inside of her thigh to her medial knee. Occasionally happens less severely on the right side, but mainly the left. Notes two or three times , she has had spasms in her leg that drop me to the floor . Does try to stay active, walks with a walking group a couple times a week, and does a weekly [employer] class. A few days after a PCP appointment last month, she was sent ot the ED due to findings in her blood work made them concerned about her kidneys. Follow-up bloodwork was largely WNL, but while in the ED, she received pelvis/abdominal CT scan, which was unremarkable. Hip x- rays show moderate arthritic changes. Notes her pain has been bothering her sleep, typically wakes up after 4-5 hours, and then is unable to get back to sleep. Notes she got a couple stretching exercises from her PCP, but hasn't noticed them making much of a difference. Prior Treatments and Tests Pelvis X-ray: IMPRESSION: Moderate bilateral hip arthritic change. per Rajani Gutierrez M.D. on 08/20/[address]: IMPRESSION: 1. No obstructing stones or hydronephrosis. Nonobstructing stone in lower pole left kidney. Left peripelvic renal cysts. No hydroureter. Normal appearing urinary bladder. 2. Normal appendix. No bowel obstruction or abnormal bowel wall thickening. Mild constipation. Sigmoid diverticulosis without CT evidence of acute diverticulitis. per Arthur Morejon M.D. on 08/24/2024 Treatment Goals Patient/Caregiver Goals Uninturrupted sleep, get back to usual participation in exercise. PT-OP-C Subjective Start: 09/20/24 13:50 Freq: Status: Active Protocol: Document 10/26/24 14:44 NBM (Rec: 10/26/24 15:24 NBM [id number]) OP-PT Subjective Patient Comments Patient Comments Pt reports she's having more pain today, 8/10 in L groin, 7 /10 inside thigh, 4/10 along inside L leg, and big L toe throbs off an on. R groin and thigh 4/10. Also along outisde R knee 2/10 with tenderness to touch since yesterday. Not sleeping well and very tired today. She wakes up to use bathroom then can't fall back asleep, either because of pain or spouse snoring or stress, etc. She did [employer] class today and stretching felt good , and rested and sat out as needed. PT-OP-F Manual Assessment Start: 09/20/24 13:50 Freq: Status: Active Protocol: Document 09/20/24 12:15 DCW (Rec: 09/20/24 14:16 DCW [id number]) Manual Assessments Soft Tissue Assessment Soft Tissue Mobility Assessment Tenderness to palpation along entirety of bilateral lower extremities 3/4: Wincing and withdraw. Pt incredibly sensitive to all palpation, during special testing, most discomfort was not caused pt the positioning or motion, but the light pressure against her soft tissue. PT-OP-L Special Tests Start: 09/20/24 13:50 Freq: Status: Active Protocol: Document 09/20/24 12:15 DCW (Rec: 09/20/24 14:16 DCW [id number]) Special Tests Lumbar Spine Special Tests ALICIA Test Results Negative Straight Leg Raise Test Results Negative Slump Test Results Negative Manual Traction Test Results Negative Compression Test Results Negative A-P Shearing Test Results Negative Hip Special Tests Scour Test Test Results Negative Piriformis Test Results Negative PT-OP-M Strength Start: 09/20/24 13:50 Freq: Status: Active Protocol: Document 09/20/24 12:15 DCW (Rec: 09/20/24 14:16 DCW [id number]) Hip Strength Hip Manual Muscle Testing Right Flexion (L2) 3+ Fair+ Abduction 4- Good- Adduction 4- Good- External Rotation 4- Good- Internal Rotation 4 Good Left Flexion (L2) 3+ Fair+ Abduction 4- Good- Adduction 4- Good- External Rotation 4- Good- Internal Rotation 4 Good Knee Strength Knee Manual Muscle Testing Right Flexion (S2) 4- Good- Extension (L3) 4- Good- Left Flexion (S2) 4- Good- Extension (L3) 4- Good- PT-OP-Q Treatments Start: 09/20/24 13:50 Freq: Status: Active Protocol: Document 10/26/24 14:44 NBM (Rec: 10/26/24 15:24 NBM [id number]) Therapeutic Exercises Supine Exercises ITB Stretch Supine Exercise Name ITB Stretch Side bilateral Equipment Used /c strap Reps/Minutes 30 ea Comments cues for bent izabella, painfree ROM Hamstring Stretch Supine Exercise Name Hamstring Stretch Side bilateral Equipment Used /c strap Reps/Minutes 30 ea Other Exercises Step-ups Other Exercise Name Step-ups, RLE leading then LLE leading. Side bilateral Equipment Used 6 step, handrail for balance Comments vc slower pacing, painfree Gait Training Gait Activity ambulation Description around clinic after manual therapy to normalize gait mechanics Level of Assistance SBA Surface firm Distance/Duration 170 ft Treatment Focus increasing stride and step length Comments gait and LLE pain reporting improves with ambulation. Manual Therapy Treatment Consent Patient gave verbal consent for manual Yes treatment Soft Tissue Mobilization L hip Body Location L adductors, quads, hamstrings , ITB Mobilization Type Cross-Friction,Rolling, Strumming,Sustained Pressure Intensity/Depth superficial>moderate Body Position Supine, Hooklying Comments Very gentle Circular strokes distal to proximal insertions. w/ breathwork Focus on gracilis, semimembranosus and semitendinosus. Manual Techniques LE stretch Type 1. KTC 2. Hip ER stretch 3. Hip IR stretch Body Location Left Lower extremity Body Position Supine, Hooklying Reps/Duration 1. 2x30 2./3. x10 w/ breath and FM Comments Hip ER/IR w/ 90 deg hip flex and breathwork and very limited pain-free range of motion d/t pain in L adductors proximally. PT-OP-R Modalities Start: 09/28/24 12:37 Freq: Status: Active Protocol: Document 09/28/24 11:39 NBM (Rec: 09/28/24 12:38 NBM [id number]) Hot Pack/Cold Pack Treatment Cold Pack Location L knee, lumbar anterior, cervical posterior Patient Position Hooklying Patient Tolerance Good Comments 8' PT-OP-T Assessment and Plan Start: 09/20/24 13:50 Freq: Status: Active Protocol: Document 10/26/24 14:44 NBM (Rec: 10/26/24 15:24 NBM [id number]) Physical Therapy Assessment Goals Three Impairment Pt displays general lower extremity weakness bilaterally Bobbin Collector Goal (LTG) Pt to demonstrate MMT of 4/5 or better in all tests hip planes bilaterally in order to demonstrate improved lower extremity strength and improved functional mobility. LTG Duration 11/18/24 Two Impairment Pt notes pain inturrupts sleep most nights [facility] Goal (LTG) Pt to report pain does not wake her up for at least 5 days over the course of a week . LTG Duration 11/18/24 One Impairment Pt does not have an appropriate home exercise program Short Term Goal (STG) Pt to be compliant with independent with an appropriate HEP STG Duration 10/21/24 Assessment Summary Assessment Pt presents sleeping in waiting room. Treatment focus on pain management and peripheralization of symptoms. End of session L toe is no longer throbbing and L groin pain improves from 8/10 to 6/ 10, but inside thigh and L calf pain persist unchanged 7/ 10 and 4/10 respectively. She demonstrates less lower extremity tightness with gait mechanics end of session and reports muscles feel looser. Physical Therapy Plan Frequency and Duration Frequency of Treatment 2x/Week Plan of Care Start Date 09/20/24 Plan of Care End Date 11/18/24 Therapeutic Interventions Therapeutic Interventions Home Exercise Program,Joint Mobilizations,Manual Therapy, Neuromuscular Re-education, Patient/Caregiver Education, Self-Care/Home Management,Soft Tissue Mobilization, Therapeutic Activities, Therapeutic Exercises Modalities Cold Pack/Ice Massage,Hot Packs Next Visit Focus/Plan Next Note Type Treatment Note Next Visit Plan Next: Assess for possible D/C per 10/22 PT Assessment. POC: LE strengthening, stretching, STM as tolerated
--- NOTE | 2024-10-28 15:13 | PT.OTN ---
Current Diagnoses Myalgia, unspecified site (10/28/24) Pain in right leg (10/28/24) Pain in left leg (10/28/24) Strain of adductor muscle, fascia and tendon of unspecified thigh, initial encounter (10/28/24) Strain of adductor muscle, fascia and tendon of unspecified thigh, subsequent encounter (10/28/24) Physical Therapy Treatment Note PT-OP-A Visit Information Start: 09/20/24 13:50 Freq: Status: Active Protocol: Document 10/28/24 14:30 DCW (Rec: 10/28/24 15:13 DCW [id number]) Out-Patient Physical Therapy Visit Information Visit Information Visit Type Treatment Note Visit Start Time 14:30 Visit Stop Time 15:00 Visit Number 11 Number of BUSINESS SYSTEMS ARCHITECT Visits 0 Evaluation Information Evaluation Date 09/20/24 PT-OP-B Current Condition Start: 09/20/24 13:50 Freq: Status: Active Protocol: Document 09/20/24 12:15 DCW (Rec: 09/20/24 14:16 DCW [id number]) Current Condition History of Current Condition Onset Date 3-4 month history Current Complaints Left hip, groin, leg pain History of Current Condition Pt is a 69 year old female presenting with a 3-4 month history of L>E LE pain, spasm, and weakness. Pt notes pain seems like it begins at her left groin, and travels down the inside of her thigh to her medial knee. Occasionally happens less severely on the right side, but mainly the left. Notes two or three times , she has had spasms in her leg that drop me to the floor . Does try to stay active, walks with a walking group a couple times a week, and does a weekly [employer] class. A few days after a PCP appointment last month, she was sent ot the ED due to findings in her blood work made them concerned about her kidneys. Follow-up bloodwork was largely WNL, but while in the ED, she received pelvis/abdominal CT scan, which was unremarkable. Hip x- rays show moderate arthritic changes. Notes her pain has been bothering her sleep, typically wakes up after 4-5 hours, and then is unable to get back to sleep. Notes she got a couple stretching exercises from her PCP, but hasn't noticed them making much of a difference. Prior Treatments and Tests Pelvis X-ray: IMPRESSION: Moderate bilateral hip arthritic change. per Rajani Gutierrez M.D. on 08/20/[address]: IMPRESSION: 1. No obstructing stones or hydronephrosis. Nonobstructing stone in lower pole left kidney. Left peripelvic renal cysts. No hydroureter. Normal appearing urinary bladder. 2. Normal appendix. No bowel obstruction or abnormal bowel wall thickening. Mild constipation. Sigmoid diverticulosis without CT evidence of acute diverticulitis. per Arthur Morejon M.D. on 08/24/2024 Treatment Goals Patient/Caregiver Goals Uninturrupted sleep, get back to usual participation in exercise. PT-OP-C Subjective Start: 09/20/24 13:50 Freq: Status: Active Protocol: Document 10/28/24 14:30 DCW (Rec: 10/28/24 15:13 DCW [id number]) OP-PT Subjective Patient Comments Patient Comments Pt able to move follow-up with PCP to tomorrow, hopeful to discuss next steps. Calf has just been on fire. PT-OP-F Manual Assessment Start: 09/20/24 13:50 Freq: Status: Active Protocol: Document 09/20/24 12:15 DCW (Rec: 09/20/24 14:16 DCW [id number]) Manual Assessments Soft Tissue Assessment Soft Tissue Mobility Assessment Tenderness to palpation along entirety of bilateral lower extremities 3/4: Wincing and withdraw. Pt incredibly sensitive to all palpation, during special testing, most discomfort was not caused pt the positioning or motion, but the light pressure against her soft tissue. PT-OP-L Special Tests Start: 09/20/24 13:50 Freq: Status: Active Protocol: Document 09/20/24 12:15 DCW (Rec: 09/20/24 14:16 DCW [id number]) Special Tests Lumbar Spine Special Tests ALICIA Test Results Negative Straight Leg Raise Test Results Negative Slump Test Results Negative Manual Traction Test Results Negative Compression Test Results Negative A-P Shearing Test Results Negative Hip Special Tests Scour Test Test Results Negative Piriformis Test Results Negative PT-OP-M Strength Start: 09/20/24 13:50 Freq: Status: Active Protocol: Document 09/20/24 12:15 DCW (Rec: 09/20/24 14:16 DCW [id number]) Hip Strength Hip Manual Muscle Testing Right Flexion (L2) 3+ Fair+ Abduction 4- Good- Adduction 4- Good- External Rotation 4- Good- Internal Rotation 4 Good Left Flexion (L2) 3+ Fair+ Abduction 4- Good- Adduction 4- Good- External Rotation 4- Good- Internal Rotation 4 Good Knee Strength Knee Manual Muscle Testing Right Flexion (S2) 4- Good- Extension (L3) 4- Good- Left Flexion (S2) 4- Good- Extension (L3) 4- Good- PT-OP-Q Treatments Start: 09/20/24 13:50 Freq: Status: Active Protocol: Document 10/28/24 14:30 DCW (Rec: 10/28/24 15:13 DCW [id number]) Gym Equipment Shuttle Recovery Unilateral Squats Resistance 37# (one navy) Shuttle Recovery Platform Stable Bilateral Squats Resistance 75# (three navy) Shuttle Recovery Platform Stable Reps/Time x10 (fatigued) Therapeutic Ball Pelvic Tilts Exercise Details Pelvic Circles/Tilts Ball Size/Color Green - 65 cm Body Position Sitting Therapeutic Exercises Supine Exercises Hamstring Stretch Supine Exercise Name Hamstring Stretch Side bilateral Manual Therapy Treatment Consent Patient gave verbal consent for manual Yes treatment Soft Tissue Mobilization L hip Body Location L adductors, calf, and hamstrings, L QL, B lumbar paraspinals Mobilization Type Cross-Friction,Rolling, Strumming,Sustained Pressure Intensity/Depth superficial>moderate Body Position Supine, Hooklying Comments Focus on gracilis, semimembranosus and semitendinosus. Manual Techniques LE stretch Type 1. KTC 2. Hip ER stretch 3. Hip IR stretch 4. Calf stretch Body Location Left Lower extremity Body Position Supine, Hooklying Reps/Duration 1. 2x30 2./3. x10 w/ breath and FM Comments Hip ER/IR w/ 90 deg hip flex PT-OP-R Modalities Start: 09/28/24 12:37 Freq: Status: Active Protocol: Document 09/28/24 11:39 NBM (Rec: 09/28/24 12:38 NB [id number]) Hot Pack/Cold Pack Treatment Cold Pack Location L knee, lumbar anterior, cervical posterior Patient Position Hooklying Patient Tolerance Good Comments 8' PT-OP-T Assessment and Plan Start: 09/20/24 13:50 Freq: Status: Active Protocol: Document 10/28/24 14:30 DCW (Rec: 10/28/24 15:13 DCW [id number]) Physical Therapy Assessment Impairments Impairments Functional Activities, Functional Mobility,Pain,Soft Tissue Mobility,Strength,Tone Goals Three Impairment Pt displays general lower extremity weakness bilaterally [facility] Goal (LTG) Pt to demonstrate MMT of 4/5 or better in all tests hip planes bilaterally in order to demonstrate improved lower extremity strength and improved functional mobility. LTG Duration 11/18/24 Two Impairment Pt notes pain inturrupts sleep most nights [facility] Goal (LTG) Pt to report pain does not wake her up for at least 5 days over the course of a week . LTG Duration 11/18/24 One Impairment Pt does not have an appropriate home exercise program Short Term Goal (STG) Pt to be compliant with independent with an appropriate HEP STG Duration 10/21/24 Assessment Summary Assessment Pt's complaints/symptoms largely unchanged. Agreeable to hold PT until she meets with her PCP tomorrow to discuss next step. Physical Therapy Plan Frequency and Duration Frequency of Treatment 2x/Week Plan of Care Start Date 09/20/24 Plan of Care End Date 11/18/24 Therapeutic Interventions Therapeutic Interventions Home Exercise Program,Joint Mobilizations,Manual Therapy, Neuromuscular Re-education, Patient/Caregiver Education, Self-Care/Home Management,Soft Tissue Mobilization, Therapeutic Activities, Therapeutic Exercises Modalities Cold Pack/Ice Massage,Hot Packs Next Visit Focus/Plan Next Note Type Treatment Note Next Visit Plan Next: Assess for possible D/C per 10/22 PT Assessment. POC: LE strengthening, stretching, STM as tolerated
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
== END 2025-06-07 10:52 | disposition home or self-care (01) ==
LOC: PHYS 14:30
PROVIDERS: Family Provider Family Medicine; PCP Family Medicine; Referring Provider Family Medicine; Visit Provider Family Medicine
DX: S76.219D Strain of adductor muscle, fascia and tendon of unspecified thigh, subsequent encounter (principal); M79.604 Pain in right leg; M79.605 Pain in left leg; M79.10 Myalgia, unspecified site; S76.219A Strain of adductor muscle, fascia and tendon of unspecified thigh, initial encounter
CPT/HCPCS: 97110; 97140; 97162; 97535

== ENCOUNTER → 2024-11-15 07:25 | Outpatient (CLI) | payer MEDICARE, OTHER, SELFPAY ==
[2024-11-15 07:46] LABS: Appearance Urine UA CLEAR; Bilirubin Urine UA NEGATIVE (NEGATIVE); Color Urine UA YELLOW; Glucose Urine UA NEGATIVE (Negative); Ketones Urine UA NEGATIVE (NEGATIVE); Leukocyte Esterase Urine UA TRACE (NEGATIVE); Nitrite Urine UA NEGATIVE (Negative); Occult Blood Urine UA NEGATIVE (Negative); Protein Urine UA NEGATIVE (Negative); Specific Gravity Urine UA 1.015 (1.000-1.035); Urobilinogen Urine UA 0.2 E.U./dL (0.2)
[2024-11-15 07:50] LABS: Urine Volume 10mL (spun); pH Urine UA 5.5 (4.5-8.0)
[2024-11-15 07:51] LABS: Bacteria Urine None Seen; Culture Indicated Urine Specimen Cultured; RBC Urine None Seen (0-5/HPF); Squamous Epithelial Cell Urine 1-5 /HPF (0-5/HPF); WBC Urine 1-5/HPF (0-5/HPF)
[2024-11-15 08:34] LABS: BUN Creatinine Ratio 19.5 (6-22); Blood Urea Nitrogen 26 mg/dL (7-17); C-Reactive Protein Quant < 0.5 mg/dL (<1.0); Calcium 10.2 mg/dL (8.4-10.2); Carbon Dioxide 24 mmol/L (22-32); Chloride 103 mmol/L (98-107); Creatine Kinase 221 U/L (30-135); Estimated Glomerular Filt Rate 44 mL/min (>60); Glucose 98 mg/dL (80-110); HEMOLYSIS < 15 (0-50); Potassium 4.7 mmol/L (3.4-5.1); Sodium 135 mmol/L (137-145)
[2024-11-15 08:38] LABS: Rheumatoid Factor < 8.6 IU/mL (<12.0)
[2024-11-15 08:49] LABS: Erythrocyte Sedimentation Rate 48 MM/HR (0-20)
== END ==
PROVIDERS: Family Provider Family Medicine; PCP Family Medicine; Referring Provider Family Medicine; Visit Provider Family Medicine
DX: R74.8 Abnormal levels of other serum enzymes (principal); N18.30 Chronic kidney disease, stage 3 unspecified; E87.1 Hypo-osmolality and hyponatremia
CPT/HCPCS: 36415; 80048; 81001; 82550; 85651; 86038; 86140; 86430; 87086

== ENCOUNTER → 2024-12-24 08:26 | Outpatient (CLI) | payer MEDICARE, OTHER, SELFPAY ==
--- NOTE | 2024-12-24 08:27 | DI.US.S_ITS ---
PROCEDURE: US RENAL COMPLETE INDICATIONS: NEPHROLITHIASIS. CKD. RENAL CYSTS. ELEVATED CREATININE. TECHNIQUE: Real-time scanning was performed of the kidneys and bladder, with image documentation. COMPARISON: [facility], CT, CT ABDOMEN PELVIS WO CON, 08/24/2024, 9:59. FINDINGS: Kidneys: Both kidneys measure 9 cm. No hydronephrosis. No solid mass. No calcified stones identified. There are multiple cysts, more seen on the left, the largest measuring up to 1.9 x 1.4 cm in the left parapelvic region Bladder: Postvoid residual is 19 cc. Miscellaneous: No free pelvic fluid. IMPRESSION: No calcified stones identified. Left renal cysts, measuring up to 1.9 cm in the parapelvic region. No hydronephrosis. Postvoid residual is 19 cc. Dictated by: Andrea Fitzgerald M.D. on 12/25/2024 at 17:42 Approved by: Andrea Fitzgerald M.D. on 12/25/2024 at 17:44
== END ==
PROVIDERS: Family Provider Family Medicine; PCP Family Medicine; Referring Provider Family Medicine; Visit Provider Family Medicine
DX: N20.0 Calculus of kidney (principal); N28.1 Cyst of kidney, acquired; E11.22 Type 2 diabetes mellitus with diabetic chronic kidney disease; I12.9 Hypertensive chronic kidney disease with stage 1 through stage 4 chronic kidney disease, or unspecified chronic kidney disease; N18.30 Chronic kidney disease, stage 3 unspecified; E87.1 Hypo-osmolality and hyponatremia; R74.8 Abnormal levels of other serum enzymes; M79.604 Pain in right leg; M79.605 Pain in left leg; Z82.69 Family history of other diseases of the musculoskeletal system and connective tissue
CPT/HCPCS: 76770

== ENCOUNTER → 2025-01-10 08:44 | Outpatient (CLI) | payer MEDICARE, OTHER, SELFPAY ==
--- NOTE | 2025-01-10 08:45 | DI.CT.S_ITS ---
PROCEDURE: CT LUMBAR SPINE WO CON INDICATIONS: Worsening leg pain/weakness/stool incontinence TECHNIQUE: Noncontrast 3 mm thick sections acquired from the T12 level to the sacrum. Sagittal and coronal reformats were constructed. For radiation dose reduction, the following was used: automated exposure control. COMPARISON: None. FINDINGS: Image quality: Excellent. Bones: There is normal bony alignment. Status post L3 through L5 posterior spinal fixation and laminectomy changes. Hardware appears intact. No surrounding fracture or lucency is seen. Degenerative changes of the lumbar spine are seen. There is moderate to severe right neural foraminal stenosis at L5-S1, mild left neural foraminal stenosis. Likely mild bilateral neural foraminal stenosis at L4-L5 and moderate bilateral neural foraminal stenosis at L3-L4. No significant central canal stenosis.. No acute vertebral body compression fractures. No suspicious lytic or blastic bony lesions. No pars defects. Soft tissues: No retroperitoneal masses or hematomas. Visualized aorta is normal in caliber. Mild atherosclerotic vascular calcifications. IMPRESSION: Degenerative changes of the lumbar spine status post L3 through L5 posterior spinal fixation and discectomy. No findings concerning for hardware complication. No significant central canal stenosis. Probable moderate to severe right neural foraminal stenosis at L5-S1. Consider MRI for further evaluation. Dictated by: John Casas M.D. on 01/10/2025 at 16:03 Approved by: John Casas M.D. on 01/10/2025 at 16:34
== END ==
PROVIDERS: Family Provider Family Medicine; PCP Family Medicine; Referring Provider Family Medicine; Visit Provider Family Medicine
DX: M48.061 Spinal stenosis, lumbar region without neurogenic claudication (principal); M48.07 Spinal stenosis, lumbosacral region; R15.9 Full incontinence of feces; N18.31 Chronic kidney disease, stage 3a; M51.9 Unspecified thoracic, thoracolumbar and lumbosacral intervertebral disc disorder; I70.90 Unspecified atherosclerosis; R29.898 Other symptoms and signs involving the musculoskeletal system; M79.606 Pain in leg, unspecified; Z82.69 Family history of other diseases of the musculoskeletal system and connective tissue; Z98.1 Arthrodesis status
CPT/HCPCS: 72131

== ENCOUNTER → 2025-01-28 11:39 | Outpatient (CLI) | payer MEDICARE, OTHER, SELFPAY ==
--- NOTE | 2025-01-28 11:40 | DI.MRI.S_ITS ---
PROCEDURE: MR LUMBAR SPINE WO CON INDICATIONS: Low back pain, history of spine surgery/ titanium hardware TECHNIQUE: Noncontrast sagittal T1 spin echo and T2 fast echo, sagittal STIR, and T2 fast spin echo through the lumbar spine. In cases with scoliosis, additional coronal T2 fast spin echo may be performed. COMPARISON: [facility], CT, CT ABDOMEN PELVIS WO CON, 08/24/2024, 9:59. FINDINGS: Image quality: Excellent, however pedicle screws at the L3, L4 and L5 levels limit the study. Alignment and Curvature: There is normal bony alignment. Bone Marrow: Marrow is of normal overall signal. No acute vertebral body compression fractures. Spinal Cord: Conus medullaris terminates at the L1 level. Visualized cord demonstrates normal signal and size. Paraspinous Soft Tissues: No paravertebral masses. T12-L1: Normal appearance. L1-L2: There is. It is prior the ligamentum flavum hypertrophy. AP done the spine final canal measures 10 mm. There is mild bilateral neural foraminal stenosis. L2-L3: There is degenerative disc disease at this level with loss of disc space height. There is moderate facet arthropathy. The AP diameter measures 11.9 mm. No significant neural foraminal stenosis. L3-L4: There is severe degenerative disc disease at this level. There is a posterior laminectomy. The AP diameter spinal canal measures 15 mm. Posterior to the thecal sac there is a noncommunicating seroma measuring 25 mm in length and 13 x 29 mm in transverse dimension. There is moderate bilateral neural foraminal stenoses. L4-L5: There is moderate degenerative disc disease at this level. The AP diameter spinal canal measures 15.7 mm. There is mild bilateral neural foraminal stenosis. L5-S1: There is degenerative disc disease at this level with circumferential bulging. AP diameter spinal canal measures 13.1 mm. This moderate facet arthropathy. There is mild bilateral neural foraminal encroachment. IMPRESSION: No acute process. No significant central spinal stenosis. L3, L4 and L5 posterior fusion and laminectomy with a postsurgical seroma. Multilevel neural foraminal stenoses as described above. Dictated by: Topher Calixto M.D. on 01/28/2025 at 14:12 Approved by: Topher Calixto M.D. on 01/28/2025 at 14:44
== END ==
PROVIDERS: Family Provider Family Medicine; PCP Family Medicine; Referring Provider Family Medicine; Visit Provider Family Medicine
DX: M54.50 Low back pain, unspecified (principal); M51.9 Unspecified thoracic, thoracolumbar and lumbosacral intervertebral disc disorder; Z98.1 Arthrodesis status; M48.061 Spinal stenosis, lumbar region without neurogenic claudication; M48.07 Spinal stenosis, lumbosacral region; M51.369 Other intervertebral disc degeneration, lumbar region without mention of lumbar back pain or lower extremity pain; M51.379 Other intervertebral disc degeneration, lumbosacral region without mention of lumbar back pain or lower extremity pain; M47.817 Spondylosis without myelopathy or radiculopathy, lumbosacral region; M47.816 Spondylosis without myelopathy or radiculopathy, lumbar region
CPT/HCPCS: 72148

== ENCOUNTER → 2025-02-03 10:41 | Outpatient (CLI) | payer MEDICARE, OTHER, SELFPAY | PROVIDERS: Family Provider Family Medicine; PCP Family Medicine; Referring Provider Family Medicine; Visit Provider Family Medicine | DX: M79.604 Pain in right leg (principal); M79.605 Pain in left leg | CPT/HCPCS: 95886; 95910 ==